=== PATIENT | female | born 1945 | race Caucasian/White ===

== ENCOUNTER 2017-09-06 10:24 | Emergency (ER) | payer MEDICARE, SELFPAY ==
[2017-09-06 10:26] VITALS: BP 159/93; PULSE 75; RESP 17; TEMP 37; O2SAT 97; BMI 33.5
--- NOTE | 2017-09-06 10:52 | NURSING ---
NO LW OR POA
--- NOTE | 2017-09-06 11:29 | RAD_ITS ---
STUDY: X-RAY - LUMBAR SPINE REASON FOR EXAM: Female, 72 years old. Right-sided hip and back pain TECHNIQUE: 3 view(s) of the lumbar spine were obtained. COMPARISON: None FINDINGS: There is straightening of the normal lumbar lordosis. There is a mild levoscoliosis of the lumbar spine. There is a normal alignment of the vertebrae in the lateral plane. There is diffuse demineralization with multi-level endplate spondylosis. There is multi-level degenerative disc disease with multi-level disc space narrowing. There has been previous laminectomy from L1 to L5. The soft tissue structures are unremarkable. RAD/Lumbar Spine 2 or 3 Views IMPRESSION: Degenerative and postsurgical changes of the spine, as detailed above. Electronically Signed: Felix Thomason MD at 12:33 EDT , Service support ,
[2017-09-06] MEDS: Orphenadrine 60 MG/2 ML Ampul IM (11:46)
[2017-09-06] MEDS: Morphine 4 MG/ML Syringe SC (11:53)
--- NOTE | 2017-09-06 13:09 | ED.VISSUMM ---
- ER Visit Summary Date of Service: 09/06/17 Chief Complaint: Pain History of Present Illness: The patient is a 72 F pain that starts in her right buttock and radiates down her right thigh. Symptoms started 2 days ago. She tried Flexeril and hydrocodone. She also takes an anti-inflammatory medication. These are not helping. She denies any injury. Denies any prior history of this. Denies weakness or numbness. Denies bowel or bladder changes. Denies fevers. She does have a history of back surgery remotely for calcium deposits. Physical Examination: Vital signs unremarkable. Alert and oriented. No acute distress. Heart regular. Abdomen soft and nontender. Tenderness in the right lower back. Straight leg raise negative. Strength and sensation normal. Pulses equal. Test Results: X-ray shows degenerative and postoperative changes. Nothing acute. Emergency Department Course and Treatment: Patient was treated with morphine and Norflex. Symptoms improved. Believe the patient is appropriate for outpatient follow-up and further care as needed. She should continue her anti-inflammatory. Will prescribe short course of hydrocodone for breakthrough pain. She may also take Flexeril as needed for muscle spasm. Precautions were discussed. Patient voiced understanding. She will call her doctor tomorrow for follow-up. Treatment Plan: Above Disposition: Discharge Impression: 1. Right sciatica This note was generated with Penemarie K [employer] dictation software. It may contain incorrect words, spelling, and punctuation that were not noted in review of the chart prior to signing ED Disposition - Plan for ED Patient: Chief Complaint: Lower Extremity Injury Referrals: Mariama Diamond MD [Primary Care Provider] -
--- NOTE | 2017-09-06 13:13 | ED.DEP ---
ED Disposition - Plan for ED Patient: Chief Complaint: Lower Extremity Injury Instructions: Relieving Back Pain Prescriptions: Hydrocodone/Acetaminophen [Hydrocodon-Acetaminophen 5-325] 1 ea PO 4X/DAY PRN PRN 3 Days #12 tab PRN Reason: Pain Cyclobenzaprine [Flexeril] 10 mg PO TID PRN #20 tab PRN Reason: Muscle Spasm Referrals: Mariama Diamond MD [Primary Care Provider] -
[2017-09-06 13:27] VITALS: BP 144/76; PULSE 67
== END 2017-09-06 13:27 | disposition home or self-care (01) ==
LOC: ED 11:59
PROVIDERS: Emergency Provider Emergency Medicine; Family Provider Internal Medicine; PCP Internal Medicine
DX: M54.41 Lumbago with sciatica, right side (principal); Z79.899 Other long term (current) drug therapy
CPT/HCPCS: 72100; 96372; 99282

== ENCOUNTER 2019-01-15 11:44 | Emergency (ER) | payer MEDICARE, SELFPAY ==
[2019-01-15 11:46] VITALS: BP 131/74; PULSE 76; RESP 17; TEMP 36.4; O2SAT 93; BMI 35.8
--- NOTE | 2019-01-15 12:13 | RAD_ITS ---
STUDY: X-RAY CHEST REASON FOR EXAM: Female, 73 years old. Syncopal episode TECHNIQUE: Single view of the chest was obtained COMPARISON: None. FINDINGS: No lung consolidation, pleural effusion or pneumothorax. Cardiac size within normal limits. Osseous structures demonstrate no acute abnormalities. Overlying EKG leads somewhat limit assessment. IMPRESSION: No acute cardiopulmonary pathology noted. Electronically Signed: Yovany Anton, at 12:37 EDT Tel , Service support , RAD/Chest 1 View (Portable)
--- NOTE | 2019-01-15 12:14 | EKG12_ITS ---
Test Reason : Blood Pressure : / mmHG Vent. Rate : 070 BPM Atrial Rate : 070 BPM P-R Int : 160 ms QRS Dur : 128 ms QT Int : 458 ms P-R-T Axes : 048 -43 -66 degrees QTc Int : 494 ms Sinus rhythm with occasional Premature ventricular complexes Left axis deviation Left ventricular hypertrophy with QRS widening T wave abnormality, consider inferior ischemia T wave abnormality, consider anterolateral ischemia Abnormal ECG Confirmed by RUBY SABILLON, GATITO ([id number]), clinical editor KATHLEEN MAR ([id number]) on 01/18/2019 10:17:34 AM Referred By: SANIYA Confirmed By:GATITO BELTRAN MD
--- NOTE | 2019-01-15 12:15 | ED.DCSUM_ITS ---
History of Present Illness Chief Complaint: Nausea/Vomiting Detail of Chief Complaint: Syncope Informant: Patient, Family Onset: Today Current Severity: Mild Maximum Severity: Moderate Narrative: Patient presents via EMS after syncopal episode. Patient was outside helping her split wood. She was sitting next to the motor on the log splitter. She states that just after they turn the machine off she started to notice everything in her vision becoming wavy and she felt lightheaded and nauseated. states that when he checked on her head was slumped in her eyes were rolled back in her head. She had not fallen from a seated position that she was sitting in. She came around once EMS had arrived. She denies having chest pain or palpitations. believes that she may have carbon monoxide poisoning from sitting next to the machine. - Past Medical History (1) Hypertension Status: Chronic (2) High cholesterol Status: Chronic Past Medical History - Allergies and Home Meds Allergies/Adverse Reactions: Allergies adhesive Allergy (Verified 01/15/19 11:45) Rash lactose Allergy (Verified 01/15/19 11:45) Upset Stomach Primary Care Physician: Fernando Yun MD [Primary Care Provider] - Prior records reviewed: Yes Past Medical History: - - Reviewed Lives: Spouse/ Significant Other Smoking Status: Never smoker Review of Systems General: Denies: Chills, Fever Eyes: Denies: Visual changes - bilaterally ENT: Denies: Bilateral ear pain Cardiovascular: Denies: Chest pain, Palpitations, Heart racing Respiratory: Denies: Dyspnea, Cough Gastrointestinal: Reports: Nausea, Vomiting. Denies: Abdominal pain Genitourinary: Denies: Dysuria Musculoskeletal: Denies: Myalgias Neurological: Denies: Headache Endocrine: Denies: Polyuria, Polydipsia Hematologic: Denies: Easy bruising Allergy: Denies: Uticaria, Swelling of the mouth Physical Exam Vital Signs/Narrative: Vital Signs Temp Pulse Resp BP Pulse Ox 01/15/19 11:46 97.5 F L 76 17 131/74 H 93 Inital Vital Signs reviewed: Yes General: Well nourished, Well developed Head: Normocephalic ENT: Moist mucous membranes Neck: Supple Cardiovascular: Regular rate, Regular rhythm Respiratory: No distress, CTA bilaterally Abdomen: Soft, Nontender, Normal bowel sounds Back: Nontender Skin: Normal color Neurological: Alert, Oriented x3, Normal Strength, Normal Sensation Psychological: Normal affect Diagnostic/Tx/Re-eval Impressions Chest X-Ray 01/15/19 12:13 01/15/19 12:13 Chest 1 View (Portable) [RAD] Stat Laboratory Results 01/15/19 01/15/19 01/15/19 11:54 11:54 12:31 WBC 7.7 RBC 4.14 L Hgb 13.3 Hct 38.6 MCV 93.2 MCH 32.1 H MCHC 34.5 RDW Std Deviation 44.0 H RDW Coeff of Linda 12.8 Plt Count 229 MPV 10.2 Immature Gran % (Auto) 0.300 Neut % (Auto) 56.7 Lymph % (Auto) 30.4 Lamar % (Auto) 7.8 Eos % (Auto) 3.9 Baso % (Auto) 0.9 Absolute Neuts (auto) 4.4 Absolute Lymphs (auto) 2.35 Nucleated RBC % 0 VBG Carboxyhemoglobin 1.3 Sodium 140 Potassium 3.4 L Chloride 100 Carbon Dioxide 29.0 Anion Gap 11 BUN 23 H Creatinine 0.82 Estim Creat Clear Calc 52.76 Est GFR (MDRD) Af Amer 88 Est GFR (MDRD) Non-Af 73 BUN/Creatinine Ratio 28.0 H Glucose 203 H Calcium 9.2 Total Bilirubin 0.40 Direct Bilirubin 0.13 AST 16 ALT 26 Alkaline Phosphatase 90 Troponin I < 0.015 Total Protein 7.3 Albumin 3.7 Globulin 3.6 Urine Color Urine Clarity Urine pH Ur Specific [place] Urine Protein Urine Glucose (UA) Urine Ketones Urine Occult Blood Urine Nitrite Urine Bilirubin Urine Urobilinogen Ur Leukocyte Esterase Urine RBC Urine WBC Ur Squamous Epith Cells Ur Renal Epithelial Cell Urine Bacteria Urine Mucus 01/15/19 13:45 WBC RBC Hgb Hct MCV MCH MCHC RDW Std Deviation RDW Coeff of Linda Plt Count MPV Immature Gran % (Auto) Neut % (Auto) Lymph % (Auto) Lam[place] % (Auto) Eos % (Auto) Baso % (Auto) Absolute Neuts (auto) Absolute Lymphs (auto) Nucleated RBC % VBG Carboxyhemoglobin Sodium Potassium Chloride Carbon Dioxide Anion Gap BUN Creatinine Estim Creat Clear Calc Est GFR (MDRD) Af Amer Est GFR (MDRD) Non-Af BUN/Creatinine Ratio Glucose Calcium Total Bilirubin Direct Bilirubin AST ALT Alkaline Phosphatase Troponin I Total Protein Albumin Globulin Urine Color Yellow Urine Clarity Sl. Cloudy Urine pH 6.0 Ur Specific [place] 1.015 Urine Protein Negative Urine Glucose (UA) Normal Urine Ketones Negative Urine Occult Blood Negative Urine Nitrite Negative Urine Bilirubin Negative Urine Urobilinogen Normal Ur Leukocyte Esterase 500 H Urine RBC 0 SEEN Urine WBC 0-5 SEEN Ur Squamous Epith Cells 5-10 SEEN Ur Renal Epithelial Cell 0-5 SEEN Urine Bacteria 1+ Urine Mucus RARE - EKG Initial EKG Interpretation: Sinus Rhythm - 70. Inferior and lateral T inversions are noted, changed when compared to prior study from 2007. - Medical Decision Making Patient presents with a syncopal episode while working outside. Test results are discussed with patient and at bedside. This time she feels completely back to her baseline and is requesting discharge to home. I advised her that her test results do not indicate a significant cause for her syncope. We discussed possibility of cardiac monitoring in the hospital but she wishes to go home. She will return for worsening symptoms or concerns. ED Disposition - Plan for ED Patient: Disposition: Home or Assisted Living Diagnosis: Syncope Instructions: SYNCOPE, Unk Cause Referrals: Fernando Yun MD [Primary Care Provider] - As soon as possible
[2019-01-15] MEDS: 0.9% Normal Saline 1,000 ML 150 ML IV (12:30)
[2019-01-15 12:31] LABS: Absolute Lymphocyte Count 2.35 X10^3/uL (0.83-4.51); Absolute Neutrophil Count 4.4 X10^3/uL (2.0-7.7); Basophil# 0.07 X10^3/uL; Basophil% 0.9 % (0-1); Eosinophils% 3.9 % (0-5); Hematocrit 38.6 % (37-47); Hemoglobin 13.3 g/dL (12.0-15.0); Lymphocyte # 2.35 X10^3/ul (4.0); Lymphocyte % 30.4 % (19-41); Mean Corp Hgb Conc 34.5 g/dL (32-36); Mean Corpuscular Hgb 32.1 pg (27.0-32.0); Mean Corpuscular Volume 93.2 fL (81-99); Mean Platelet Vol. 10.2 fl (6.2-12.0); Monocyte% 7.8 % (0-10); NRBC Flagged by Analyzer 0 % (0-5); Neutrophil # 4.38 X10^3/uL (2.7-7.7); Neutrophil % 56.7 % (47-70); Platelet Count 229 K/mm3 (150-450); RBC Distribution Width CV 12.8 % (11.6-14.6); Red Blood Count 4.14 M/mm3 (4.2-5.4); White Blood Count 7.7 K/mm3 (4.4-11.0)
[2019-01-15 12:40] LABS: Carboxyhemoglobin Frac (CO) 1.3 % (0.0-1.5)
[2019-01-15 12:44] LABS: AST(SGOT) 16 U/L (15-37); Alanine Aminotransfer ALT/SGPT 26 U/L (13-56); Albumin, Serum 3.7 g/dL (3.2-5.0); Alkaline Phosphatase 90 U/L (45-117); Anion Gap 11 (5-15); BUN 23 mg/dL (7-18); Bilirubin, Direct 0.13 mg/dL (0.00-0.30); Calcium,Total 9.2 mg/dL (8.5-10.1); Chloride 100 mmol/L (98-107); Creatinine, Serum 0.82 mg/dL (0.55-1.02); EST Glomerular Filtration Rate 73 mL/min (>60); Est Glom Filt Rate - Afr Amer 88 mL/min (>60); Estimated Creatinine Clearance 52.76 ml/min; Globulin 3.6 g/dL (2.2-4.2); Glucose 203 mg/dL (74-106); Potassium 3.4 mmol/L (3.5-5.1); Protein, Total 7.3 g/dL (6.4-8.2); Sodium Level 140 mmol/L (136-145)
[2019-01-15 13:54] LABS: Red Blood Cells-Urine 0 SEEN /hpf (0-5)
[2019-01-15 13:56] LABS: Color, Urine Yellow (Yellow); Glucose, Dipstick Normal (Normal); Ketone-Dipstick Negative (Negative); Leukocyte Esterase-Dipstick 500 /ul (Negative); Nitrite-Dipstick Negative (Negative); Occult Blood-Urine Negative /ul (Negative); Protein-Dipstick Negative (Negative); Specific Gravity, Urine 1.015 (1.002-1.030); Urine Bilirubin Dipstick Negative (Negative); Urine Clarity Sl. Cloudy (Clear); Urine Urobilinogen Normal (Normal)
[2019-01-15 14:04] LABS: Bacteria 1+ /hpf (None Seen); Mucous, Urine RARE /hpf (<or=2+); Squamous Epithelial Cells - UA 5-10 SEEN /hpf (5-10); White Blood Cells 0-5 SEEN /hpf (0-5)
[2019-01-15 14:05] LABS: Renal Epithelial Cells 0-5 SEEN /hpf (0-5)
[2019-01-15 14:12] VITALS: BP 122/69; PULSE 73; RESP 19; O2SAT 94
== END 2019-01-15 14:28 | disposition home or self-care (01) ==
PROVIDERS: Emergency Provider Emergency Medicine; Family Provider Family Medicine; PCP Family Medicine
DX: R55 Syncope and collapse (principal); I10 Essential (primary) hypertension; E78.00 Pure hypercholesterolemia, unspecified; Z79.84 Long term (current) use of oral hypoglycemic drugs; Z79.899 Other long term (current) drug therapy
CPT/HCPCS: 71045; 80048; 80076; 81001; 82375; 84484; 85025; 93005; 96360; 96361; 99285

== ENCOUNTER → 2019-12-19 10:38 | Outpatient (CLI) | payer MEDICARE, SELFPAY ==
[2019-12-19 11:16] LABS: CREATININE FINGERSTICK 0.6 mg/dL (0.55-1.02); EGFR FINGERSTICK > 60.0000 mL/min (>60)
--- NOTE | 2019-12-19 11:30 | MRI_ITS ---
STUDY: MRI BRAIN WITH AND WITHOUT CONTRAST (ATTENTION INTERNAL AUDITORY CANALS - I.A.C.''s) REASON FOR EXAM: Female, 74 years old. LEFT hearing loss, bilat tinnitus TECHNIQUE: Standardized multiplanar fat and water weighted pulse sequences were obtained. IV Dotarem 18ml was administered for the contrast portion of the examination. COMPARISON: None. FINDINGS: Normal bilateral temporal bones. Normal bilateral internal auditory canals. There is no demonstrated intracanalicular or cisternal vestibular schwannoma (acoustic neuroma). There is no enhancement of the bilateral VIIth or VIIIth cranial nerves. Normal bilateral cochlea, vestibules and semicircular canals. Normal size of the ventricles and extra-axial spaces for the patient''s age. Normal white matter tracts of the supratentorial brain. Normal bilateral basal ganglia. Normal thalami. Normal flow voids within the major intracranial circulation suggesting patency by spin echo criteria. Normal venous enhancement. There is no enhancing intra-axial or extra-axial abnormality. There is no extra-axial fluid accumulation. Normal sella turcica, pituitary gland, infundibular stalk, optic chiasm and hypothalamus. Normal tectal plate and pineal gland. Normal midbrain, cedric and medulla. Normal cerebellum. MRI/Brain W/WO Contrast IMPRESSION: Normal unenhanced and enhanced MRI of the bilateral internal auditory canals (I.A.C''s). Electronically Signed: Alfredito Bill MD at 12:34 EDT Tel , Service support ,
== END ==
PROVIDERS: PCP Family Medicine; Referring Provider Otolaryngology Otolaryngology/Facial Plastic Surgery; Visit Provider Otolaryngology Otolaryngology/Facial Plastic Surgery
DX: H91.92 Unspecified hearing loss, left ear (principal); R27.0 Ataxia, unspecified
CPT/HCPCS: 70553; A9575

== ENCOUNTER 2020-09-06 08:01 | Day surgery (SDC) | payer MEDICARE, SELFPAY ==
--- NOTE | 2020-08-29 13:16 | EKG12_ITS ---
Test Reason : PREOP Blood Pressure : / mmHG Vent. Rate : 081 BPM Atrial Rate : 081 BPM P-R Int : 152 ms QRS Dur : 118 ms QT Int : 380 ms P-R-T Axes : 048 -43 041 degrees QTc Int : 441 ms Sinus rhythm with Premature supraventricular complexes Left axis deviation Left ventricular hypertrophy with QRS widening Abnormal ECG Confirmed by FELIX SABILLON, ARNOLD ([id number]), photography editor KATHLEEN MAR ([id number]) on 08/30/2020 9:21:02 AM Referred By: MACK Confirmed By:ARNOLD WASHINGTON MD
[2020-09-06] VITALS (7 sets, daily range): BP systolic 93–152; BP diastolic 63–80; PULSE 68–75; RESP 14–16; TEMP 36.1–36.6; O2SAT 93–94; BMI 33.7
[2020-09-06] MEDS: Lactated Ringers 1,000 ML 100 ML IV (08:52)
[2020-09-06 09:00] LABS: Bedside Glucose 178 mg/dL (70-110)
[2020-09-06] MEDS: Lidocaine 1% /Epi 1:100 (20ml) 20 ML Vial (09:20)
--- NOTE | 2020-09-06 09:50 | PCM.OPRPT ---
Problem List (1) Sensorineural hearing loss (SNHL) of right ear with restricted hearing of left ear Status: Chronic Report of Operation Date of Procedure: 09/06/20 Pre-Operative Diagnosis: Left single sided deafness Post-Operative Diagnosis: Same Surgery/Procedure Performed:: Placement of bone anchored hearing device left ear Description of Surgical Findings:: Corinna is a 75-year-old female with left single-sided deafness. She was counseled regarding rehabilitation with a bone-anchored hearing device and was eager to proceed. The risks, alternatives, potential complications, and benefits were discussed at length and any questions answered to the patient and/or caregiver's satisfaction. Witnessed informed consent was obtained in the office, and the patient and/or caregiver was agreeable to proceed. Procedure went as follows: The patient was identified in the preoperative holding after site marking the appropriate ear in accordance with the patient's history, office chart, and physical exam. The patient was then brought to the operating room and placed under general anesthesia and intubated. When appropriate anesthesia was obtained, the scalp was prepped and draped in usual sterile fashion. The abutment site was then marked 5 cm posterior to the external auditory meatus and injected with 1 mL of 1% lidocaine with 100,000 epinephrine. Using a 5 mm punch, the skin and subcutaneous tissues were incised and resected. The periosteum overlying the operative site was then removed sharply with an iris scissor. The pilot plant supervisor drill hole was then created and palpated to ensure bone at the bottom depth of the hole and then finalized to 4 mm in size to allow for placement of the titanium abutment. The bony fragments were then suctioned and irrigated clear and the 4 x 12 mm abutment was then placed in accordance with the manufacture's directions. Xeroform gauze was then placed at the skin edge followed by the healing cap. The patient was then returned to anesthesia, was revived and extubated without complication having tolerated the procedure well. Type of Anesthesia:: Local MAC Anesthesiologist: Jose Leos Special Medications: none Specimen's removed: none Drains: none Estimated Blood Loss (mL): 0 mL Fluids Replaced: 300 mL Grafts/Implants Used: 12 mm PONTO abutment - Complications none - Admit VTE Documentation VTE Present on Admission: No VTE Mechan Device Prophylaxis: None VTE Pharm Prophylaxis ordered?: No Reason prophylaxis not ordered:: Procedure Not Indicated
--- NOTE | 2020-09-06 09:54 | DCINST_ITS ---
- Discharge Diagnoses Current Active Problems: Current Active and Chronic Problems Sensorineural hearing loss (SNHL) of right ear with restricted hearing of left ear (Chronic) You will use the following diet at home:: No restrictions Discharge Activity: Return to Normal Activity Call your doctor if your incision/area has: Increased Pain/ Swelling, Foul Smelling Discharge Call your doctor if you observe: Fever of 101 or Higher, Uncontrolled pain Cleanse incision/area with: Do not get Incision Wet Allergies/Adverse Reactions: Allergies adhesive Allergy (Verified 09/06/20 08:32) Rash lactose Allergy (Verified 09/06/20 08:32) Upset Stomach Medications to take at Discharge Acetaminophen [Tylenol Extra Strength] 500 mg PO Q6H PRN PRN 09/06/17 Benazepril/Hydrochlorothiazide [Benazepril-Hctz 20-12.5 mg Tab] 1 tab PO BID 09/06/17 Diclofenac [Voltaren] 75 mg PO BIDCM 09/06/17 Gabapentin [Neurontin] 600 mg PO BID 09/06/17 Gabapentin [Neurontin] 900 mg PO BID 09/06/17 Levothyroxine [Synthroid] 150 mcg PO DAILY 09/06/17 Metformin HCl [Glucophage] 1,500 mg PO QHS 09/06/17 Atorvastatin Calcium [Lipitor] 20 mg PO QHS 01/15/19 Primary Care Physician: Fernando Yun MD [Primary Care Provider] - Test Results: Test results from this visit will be discussed in further detail at your follow- up appointment, if applicable. Please Follow Up With: Kannan Rahman MD When: 2 weeks
== END 2020-09-06 10:47 | disposition home or self-care (01) ==
LOC: SDC 08:05 → AC 08:05
PROVIDERS: PCP Family Medicine; Referring Provider Otolaryngology; Visit Provider Otolaryngology
PROC: (CPT 69710; principal; 2020-09-06 09:25)
DX: H90.A21 Sensorineural hearing loss, unilateral, right ear, with restricted hearing on the contralateral side (principal); E11.9 Type 2 diabetes mellitus without complications; E78.00 Pure hypercholesterolemia, unspecified; I10 Essential (primary) hypertension; M19.90 Unspecified osteoarthritis, unspecified site; Z79.84 Long term (current) use of oral hypoglycemic drugs; Z79.899 Other long term (current) drug therapy; Z20.828 Contact with and (suspected) exposure to other viral communicable diseases
CPT/HCPCS: 69714; 82962; 87426; 93005; C9803; J7120; J2405

== ENCOUNTER → 2021-03-11 07:12 | Outpatient (CLI) | payer MEDICARE, SELFPAY ==
--- NOTE | 2021-03-11 07:12 | MRI_ITS ---
STUDY: MRI LUMBAR SPINE WITH AND WITHOUT CONTRAST REASON FOR EXAM: Female, 75 years old. pain TECHNIQUE: Standardized fat and water weighted pulse sequences were obtained in the sagittal and axial planes. IV 18ml Dotarem was administered for the contrast portion of the examination. COMPARISON: X-ray 03/05/2021 FINDINGS: T12-L1: Normal endplates. Normal disc height, hydration and morphology. Normal bilateral facet joints. Normal central canal and bilateral lateral recesses. Normal bilateral intervertebral neural foramina. There is straightening of the normal lumbar lordosis. Mild levoscoliosis centered at L3. Normal conus medullaris that terminates at the L1. L1-2: Status post posterior decompression. Mild bilobed disc protrusion produces mild spinal stenosis and mild bilateral neural foraminal stenosis. L2-3: Status post posterior decompression. 5 mm of anterolisthesis of L2 on L3 with a moderate broad disc protrusion produces severe spinal stenosis and moderate bilateral neural foraminal stenosis. L3-4: Status post posterior decompression. Moderate bilobed disc protrusion produces moderate spinal stenosis, moderate right neural foraminal stenosis and mild left neural foraminal stenosis. L4-5: Status post posterior decompression. Moderate broad disc protrusion produces moderate spinal stenosis and moderate bilateral neural foraminal stenosis. L5-S1: Status post posterior decompression. 5 mm retrolisthesis of L5 on S1 with a mild broad disc protrusion produces moderate spinal stenosis with moderate bilateral recess stenosis with abutment of the S1 nerve roots bilaterally, moderate right neural foraminal stenosis and severe left neural foraminal stenosis with effacement of the left L5 nerve root laterally. Normal visualized sacral ala. Normal visualized paraspinous soft tissue structures. Some dural enhancement at the level of L3. MRI/Spine Lumbar W/WO Contrast IMPRESSION: Postsurgical changes, levoscoliosis, degenerative disc disease as described above. Electronically Signed: Maximino Chan MD at 10:46 EDT Tel , Service support ,
[2021-03-11 07:46] LABS: CREATININE FINGERSTICK 0.7 mg/dL (0.55-1.02); EGFR FINGERSTICK > 60.0000 mL/min (>60)
== END ==
PROVIDERS: PCP Family Medicine; Referring Provider Orthopaedic Surgery; Visit Provider Orthopaedic Surgery
DX: M48.061 Spinal stenosis, lumbar region without neurogenic claudication (principal)
CPT/HCPCS: 72158; A9575

== ENCOUNTER 2021-10-01 12:30 | Outpatient (CLI) | payer MEDICARE, SELFPAY ==
[2021-10-01 15:13] LABS: Absolute Lymphocyte Count 2.17 X10^3/uL (0.83-4.51); Absolute Neutrophil Count 6.6 X10^3/uL (2.0-7.7); Basophil# 0.08 X10^3/uL; Basophil% 0.8 % (0-1); Eosinophil# 0.29 X10^3/uL; Eosinophils% 2.9 % (0-5); Hematocrit 37.5 % (37-47); Hemoglobin 12.4 g/dL (12.0-15.0); Lymphocyte # 2.17 X10^3/ul (0.83-4.51); Mean Corp Hgb Conc 33.1 g/dL (32-36); Mean Corpuscular Hgb 30.3 pg (27.0-32.0); Mean Corpuscular Volume 91.7 fL (81-99); Mean Platelet Vol. 10.6 fl (6.2-12.0); Monocyte# 0.65 X10^3/uL; Monocyte% 6.6 % (0-10); NRBC Flagged by Analyzer 0 % (0-5); Neutrophil # 6.64 X10^3/uL (2.7-7.7); Neutrophil % 67.3 % (47-70); Platelet Count 287 K/mm3 (150-450); RBC Distribution Width CV 12.9 % (11.6-14.6); RBC Distribution Width SD 42.7 fl (35.1-43.9); Red Blood Count 4.09 M/mm3 (4.2-5.4); White Blood Count 9.9 K/mm3 (4.4-11.0)
[2021-10-01 15:38] LABS: Vitamin D,25 Hydroxy 18.3 ng/mL
[2021-10-01 15:43] LABS: AST(SGOT) 19 U/L (15-37); Alanine Aminotransfer ALT/SGPT 28 U/L (13-56); Albumin, Serum 3.7 g/dL (3.2-5.0); Alkaline Phosphatase 79 U/L (45-117); Anion Gap 8 (5-15); BUN 17 mg/dL (7-18); Chloride 93 mmol/L (98-107); Cholesterol 128 mg/dL (200); Creatinine, Serum 0.71 mg/dL (0.55-1.02); EST Glomerular Filtration Rate 85 mL/min (>60); Est Glom Filt Rate - Afr Amer 103 mL/min (>60); Free T3 1.1 pg/mL (2.18-3.98); Globulin 3.7 g/dL (2.2-4.2); Glucose 120 mg/dL (74-106); High Density Lipoprotein 44 mg/dL; Potassium 3.8 mmol/L (3.5-5.1); Protein, Total 7.4 g/dL (6.4-8.2); Sodium Level 133 mmol/L (136-145); T4 Free Direct 1.55 ng/dL (0.76-1.46); Triglycerides 172 mg/dL; Very Low Density Lipoprotein 34 mg/dL (5-40)
[2021-10-01 15:45] LABS: Hemoglobin A1c 6.8 % (3.8-5.6)
== END 2021-10-01 23:59 | disposition home or self-care (01) ==
PROVIDERS: PCP Internal Medicine; Referring Provider Internal Medicine; Visit Provider Internal Medicine
DX: I10 Essential (primary) hypertension (principal); E11.69 Type 2 diabetes mellitus with other specified complication; R19.7 Diarrhea, unspecified; E78.00 Pure hypercholesterolemia, unspecified; E66.9 Obesity, unspecified; E03.9 Hypothyroidism, unspecified; M48.061 Spinal stenosis, lumbar region without neurogenic claudication; M54.16 Radiculopathy, lumbar region; E55.9 Vitamin D deficiency, unspecified
CPT/HCPCS: 36415; 80053; 80061; 82306; 83036; 84439; 84443; 84481; 85025

== ENCOUNTER 2021-10-02 10:15 | Outpatient (CLI) | payer MEDICARE, SELFPAY ==
[2021-10-03 21:27] LABS: Fats, Neutral Normal (.); Fats, Total Normal (.)
== END 2021-10-02 23:59 | disposition home or self-care (01) ==
LOC: LABSPEC 10:15
PROVIDERS: PCP Internal Medicine; Referring Provider Internal Medicine; Visit Provider Internal Medicine
DX: I10 Essential (primary) hypertension (principal); E11.69 Type 2 diabetes mellitus with other specified complication; R19.7 Diarrhea, unspecified; E78.00 Pure hypercholesterolemia, unspecified; E66.9 Obesity, unspecified; E03.9 Hypothyroidism, unspecified; M48.061 Spinal stenosis, lumbar region without neurogenic claudication; M54.16 Radiculopathy, lumbar region
CPT/HCPCS: 82705; 83630; 87506

== ENCOUNTER → 2021-10-09 | Outpatient (CLI) | payer MEDICARE, SELFPAY | END | disposition home or self-care (01) | LOC: LABSPEC 10:47 | PROVIDERS: PCP Internal Medicine; Referring Provider Internal Medicine; Visit Provider Internal Medicine | DX: R19.7 Diarrhea, unspecified (principal) | CPT/HCPCS: 87493 ==

== ENCOUNTER → 2022-06-19 | Outpatient (CLI) | payer MEDICARE, SELFPAY ==
[2022-06-19 09:50] LABS: Absolute Lymphocyte Count 3.58 X10^3/uL (0.83-4.51); Absolute Neutrophil Count 6.1 X10^3/uL (2.0-7.7); Basophil% 0.9 % (0-1); Eosinophil# 0.67 X10^3/uL; Hemoglobin 13.2 g/dL (12.0-15.0); Lymphocyte # 3.58 X10^3/ul (0.83-4.51); Lymphocyte % 32.1 % (19-41); Mean Corp Hgb Conc 33.8 g/dL (32-36); Mean Corpuscular Volume 91.5 fL (81-99); Mean Platelet Vol. 9.6 fl (6.2-12.0); Monocyte# 0.68 X10^3/uL; Monocyte% 6.1 % (0-10); NRBC Flagged by Analyzer 0 % (0-5); Neutrophil # 6.09 X10^3/uL (2.7-7.7); Neutrophil % 54.5 % (47-70); Platelet Count 281 K/mm3 (150-450); RBC Distribution Width CV 13.1 % (11.6-14.6); RBC Distribution Width SD 43.8 fl (35.1-43.9); Red Blood Count 4.26 M/mm3 (4.2-5.4); White Blood Count 11.2 K/mm3 (4.4-11.0)
[2022-06-19 10:12] LABS: AST(SGOT) 17 U/L (15-37); Alanine Aminotransfer ALT/SGPT 26 U/L (13-56); Albumin, Serum 3.9 g/dL (3.2-5.0); Alkaline Phosphatase 94 U/L (45-117); Anion Gap 8 (5-15); BUN 23 mg/dL (7-18); BUN/Creat Ratio 30.5 RATIO (10-20); Calcium,Total 9.7 mg/dL (8.5-10.1); Chloride 97 mmol/L (98-107); Creatinine, Serum 0.76 mg/dL (0.55-1.02); EST Glomerular Filtration Rate 79 mL/min (>60); Est Glom Filt Rate - Afr Amer 96 mL/min (>60); Free T3 1.1 pg/mL (2.18-3.98); Globulin 3.8 g/dL (2.2-4.2); Glucose 171 mg/dL (74-106); Potassium 3.8 mmol/L (3.5-5.1); Protein, Total 7.7 g/dL (6.4-8.2); Sodium Level 135 mmol/L (136-145); T4 Free Direct 1.71 ng/dL (0.76-1.46); Thyroid Stim Hormone (TSH) 1.26 uIU/mL (0.358-3.74)
[2022-06-19 10:18] LABS: Hemoglobin A1c 6.9 % (3.8-5.6)
== END | disposition home or self-care (01) ==
LOC: LAB 09:28
PROVIDERS: PCP Internal Medicine; Referring Provider Internal Medicine; Visit Provider Internal Medicine
DX: I10 Essential (primary) hypertension (principal); E11.69 Type 2 diabetes mellitus with other specified complication; E03.9 Hypothyroidism, unspecified; E66.9 Obesity, unspecified; E78.00 Pure hypercholesterolemia, unspecified
CPT/HCPCS: 36415; 80053; 83036; 84439; 84443; 84481; 85025

== ENCOUNTER → 2022-12-18 | Outpatient (CLI) | payer MEDICARE, SELFPAY ==
[2022-12-18 08:30] LABS: Bacteria 0 SEEN /hpf (None Seen); Mucous, Urine 0 SEEN /hpf (<or=2+); Red Blood Cells-Urine 0 SEEN /hpf (0-5)
[2022-12-18 08:52] LABS: Color, Urine Yellow (Yellow); Glucose, Dipstick Normal (Normal); Ketone-Dipstick Negative (Negative); Leukocyte Esterase-Dipstick 100 /ul (Negative); Nitrite-Dipstick Negative (Negative); Occult Blood-Urine Negative /ul (Negative); Protein-Dipstick 15 mg/dl (Negative); Urine Bilirubin Dipstick Negative (Negative); Urine Clarity Sl. Cloudy (Clear); Urine Urobilinogen Normal (Normal)
[2022-12-18 08:53] LABS: Absolute Lymphocyte Count 4.13 X10^3/uL (0.83-4.51); Basophil# 0.09 X10^3/uL; Basophil% 0.8 % (0-1); Hematocrit 38.7 % (37-47); Hemoglobin 12.6 g/dL (12.0-15.0); Lymphocyte # 4.13 X10^3/ul (0.83-4.51); Lymphocyte % 37.3 % (19-41); Mean Corp Hgb Conc 32.6 g/dL (32-36); Mean Corpuscular Hgb 30.5 pg (27.0-32.0); Mean Corpuscular Volume 93.7 fL (81-99); Mean Platelet Vol. 9.9 fl (6.2-12.0); Monocyte% 7.2 % (0-10); NRBC Flagged by Analyzer 0 % (0-5); Neutrophil # 5.02 X10^3/uL (2.7-7.7); Neutrophil % 45.3 % (47-70); Platelet Count 296 K/mm3 (150-450); RBC Distribution Width CV 13.1 % (11.6-14.6); RBC Distribution Width SD 44.7 fl (35.1-43.9); Red Blood Count 4.13 M/mm3 (4.2-5.4); White Blood Count 11.1 K/mm3 (4.4-11.0)
[2022-12-18 08:59] LABS: Squamous Epithelial Cells - UA 5-10 SEEN /hpf (5-10); White Blood Cells 10-25 SEEN /hpf (0-5)
[2022-12-18 09:05] LABS: Protein, Urine (Random) 8.4 mg/dL (<11.9); Protein:Creat Ratio 202 mg/g CRE (0-200)
[2022-12-18 09:28] LABS: AST(SGOT) 18 U/L (15-37); Alanine Aminotransfer ALT/SGPT 22 U/L (13-56); Albumin, Serum 3.7 g/dL (3.2-5.0); Alkaline Phosphatase 113 U/L (45-117); Anion Gap 10 (5-15); BUN 21 mg/dL (7-18); BUN/Creat Ratio 24.5 RATIO (10-20); Calcium,Total 9.5 mg/dL (8.5-10.1); Chloride 97 mmol/L (98-107); Cholesterol 127 mg/dL (200); Creatinine, Serum 0.86 mg/dL (0.55-1.02); EST Glomerular Filtration Rate 68 mL/min (>60); Est Glom Filt Rate - Afr Amer 82 mL/min (>60); Free T3 1.1 pg/mL (2.18-3.98); Globulin 3.8 g/dL (2.2-4.2); Glucose 142 mg/dL (74-106); High Density Lipoprotein 44 mg/dL; Magnesium 1.6 mg/dL (1.6-2.6); Protein, Total 7.5 g/dL (6.4-8.2); Sodium Level 134 mmol/L (136-145); T4 Free Direct 1.61 ng/dL (0.76-1.46); Thyroid Stim Hormone (TSH) 0.84 uIU/mL (0.358-3.74); Triglycerides 186 mg/dL; Very Low Density Lipoprotein 37 mg/dL (5-40)
[2022-12-18 09:43] LABS: Vitamin D,25 Hydroxy 58.7 ng/mL
[2022-12-18 10:22] LABS: Hemoglobin A1c 6.8 % (3.8-5.6)
== END | disposition home or self-care (01) ==
LOC: LAB 08:27
PROVIDERS: PCP Internal Medicine; Referring Provider Internal Medicine; Visit Provider Internal Medicine
DX: Z13.220 Encounter for screening for lipoid disorders (principal); E11.69 Type 2 diabetes mellitus with other specified complication; I10 Essential (primary) hypertension; E03.9 Hypothyroidism, unspecified; E66.9 Obesity, unspecified; E78.00 Pure hypercholesterolemia, unspecified; E55.9 Vitamin D deficiency, unspecified
CPT/HCPCS: 36415; 80053; 80061; 81001; 82306; 82570; 83036; 83735; 84156; 84439; 84443; 84481; 85025

== ENCOUNTER → 2023-06-23 | Outpatient (CLI) | payer MEDICARE, SELFPAY ==
--- OUTSIDE RECORDS SUMMARY | 2023-06-23 09:24 | XMS RPT_ITS | CCD ---
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 Name Role Phone Court SABILLON, Fernando Mohamud Primary Care Provider [phone] Dolly Case MD Primary Care Provider Unava ilable TAQUERIA LEAVITT Attending Unavailable DOLLY CASE Primary Care Unavailable TAQUERIA LEAVITT Attending Unavailable DOLLY CASE Primary Care Unavailable TAQUERIA LEAVITT Attending Unavailable DOLLY CASE Primary Care Unavailable TAQUERIA LEAVITT Attending Unavailable DOLLY CASE Primary Care Unavailable VIRGIE RAHMAN Attending Unavailable DOLLY CASE Primary Care Unavailable DOLLY CASE Primary Care Unavailable TAQUERIA LEAVITT Attending Unavailable TAQUERIA LEAVITT Attending Unavailable DOLLY CASE Primary Care Unavailable VIRGIE RAHMAN Attending Unavailable DOLLY CASE Primary Care Unavailable VIRGIE RAHMAN Attending Unavailable DOLLY CASE Primary Care Unavailable TAQUERIA LEAVITT Attending Unavailable DOLLY CASE Primary Care Unavailable Allergies Allergy Classification Reported Allergen(s) Allergy Type Date of Onset Reaction(s) Facility (3 sources) Lactase Drug Allergy 4 Diarrhea [facility] (3 sources) Adhesives [Other] Propensity to adverse reactions 3 [facility] (8 sources) Adhesive agent; Translations: [ADHESIVE] Propensity to adverse reactions to drug 3 Itching [facility] (8 sources) Lactose; Translations: [LACTOSE] Drug Allergy 1 GI Intolerance [facility] Medications Current Medications Medication Drug Class(es) Dates Sig (Normalized) Sig (Original) atorvastatin 20 mg oral tablet (10 sources) HMG-CoA Reductase Inhibitor Start: 09-16-2022 atorvastatin (LIPITOR) 20 MG tablet Completed/Discontinued Medications Medication Drug Class(es) Dates Sig (Normalized) Sig (Original) acetaminophen 500 mg oral tablet (3 sources) Start: 02-22-2014 take 1 tablet by mouth every six hours as needed acetaminophen (TYLENOL EXTRA STRENGTH) 500 mg tablet Take 1 tablet by mouth every 6 hours as needed for Pain. 0 02/22/2014 Active Problems Active Problems Problem Classification Problem Date Documented Date Episodic/Chronic Diabetes mellitus without complication (4 sources) Type 2 diabetes mellitus without complication; Translations: [Type 2 diabetes mellitus without complications] Onset: 09-13-2015 09-13-2015 Chronic Disorders of lipid metabolism (4 sources) Mixed hyperlipidemia; Translations: [Mixed hyperlipidemia] Onset: 12-08-2011 04-12-2018 Chronic Essential hypertension (3 sources) Essential hypertension; Translations: [Essential (primary) hypertension] 09-13-2015 Chronic Other ear and sense organ disorders (3 sources) Sensorineural hearing loss, unilateral, left ear, with unrestricted hearing on the contralateral side; Translations: [Sensorineural hearing loss, unilateral] Onset: 11-06-2020 11-06-2020 Chronic Other ear and sense organ disorders (7 sources) Sensorineural hearing loss, bilateral; Translations: [Sensorineural hearing loss, bilateral] Onset: 12-02-2022 12-04-2022 Chronic Other ear and sense organ disorders (2 sources) Bilateral hearing loss; Translations: [Sensorineural hearing loss, unilateral, left ear, with restricted hearing on the contralateral side] Onset: 11-24-2022 02-23-2023 Chronic Other ear and sense organ disorders (1 source) Sensorineural hearing loss, bilateral; Translations: [Sensorineural hearing loss, bilateral] Onset: 12-02-2022 Chronic Other ear and sense organ disorders (1 source) Sensorineural hearing loss, unilateral, left ear, with restricted hearing on the contralateral side; Translations: [Sensorineural hearing loss, unilateral, left ear, with restricted hearing on the contralateral side] Onset: 11-24-2022 Chronic Other nutritional; endocrine; and metabolic disorders (3 sources) Body mass index 30+ - obesity; Translations: [Body mass index (BMI) 33.0-33.9, adult] Onset: 09-13-2015 09-13-2015 Chronic Spondylosis; intervertebral disc disorders; other back problems (3 sources) Degeneration of lumbar intervertebral disc; Translations: [Other intervertebral disc degeneration, lumbar region] Onset: 03-25-2012 03-25-2012 Chronic Thyroid disorders (4 sources) Hypothyroidism; Translations: [Hypothyroidism, unspecified] 09-13-2015 Chronic Past or Other Problems Problem Classification Problem Date Documented Da te Episodic/Chronic Spondylosis; intervertebral disc disorders; other back problems (6 sources) Lumbar radiculopathy; Translations: [Radiculopathy, lumbar region] Onset: 03-25-2012 03-25-2012 Episodic Results Test Name Value Interpretation Reference Range Facil ity Vital Signs Date Time Vital Sign Value Performing Clinician Faci lity 02-23-2023 13:07-0400 Body height 163.2 cm Virgie Rahman MD Work Phone: [facility] 02-23-2023 13:07-0400 Body mass index (BMI) [Ratio] 31.37 kg/m2 Virgie Rahman MD Work Phone: [facility] 02-23-2023 13:07-0400 Body temperature 97.9 [degF] Virgie Rahman MD Work Phone: [facility] 02-23-2023 13:07-0400 Body weight 83.55 kg Virgie Rahman MD Work Phone: [facility] Encounters Encounter Date Encounter Type Care Provider Facility Start: 04-28-2023 End: 04-28-2023 Clinical Support Taqueria Milan Work Phone: [facility] Procedures Date Procedure Procedure Detail Performing Clinician Start: 04-12-2018 Adult depression scr eening assessment Aurelia Ryder Plan of Treatment Date Care Activity Detail Author Start: 08-23-2023 End: 08-23-2023 Patient encounter procedure [facility] Start: 04-28-2023 End: 04-28-2023 Clinical Support 04/28/2023 10:00 AM EST Clinical Support [facility] [address] [place] [address] Taqueria Leavitt, Kayli [address] [place], [place] [id number] [facility] Start: 03-24-2023 End: 03-24-2023 Clinical Support 03/24/2023 10:00 AM EDT Clinical Support [facility] [address] [place] [id number] Taqueria Leavitt, Kayli [address] [place] [address] [facility] Start: 02-23-2023 End: 02-23-2023 Patient encounter procedure [facility] Start: 02-12-2023 Influenza vaccination Sequenti al Influenza Vaccine (#1) [facility] Start: 12-25-2022 End: 12-25-2022 Clinical Support 12/25/2022 10:00 AM EDT Clinical Support [facility] [address] [place] [id number] Taqueria Leavitt AuD [address] [place] [address] [facility] Start: 05-12-2022 3 comp foot exam completed DIABETIC FOOT EXAM [facility] Start: 05-12-2022 ANNUAL PCP TEAM CUSTOM SKI MAKER DESHAUN DISEASE VISIT ANNUAL PCP TEAM CHRONIC DISEASE VISIT [facility] Start: 04-23-2022 Hepatitis B surface antibody level LDL CHOLESTEROL [facility] Start: 04-15-2022 End: 06-15-2022 ALBUMIN/CREAT RATIO RND UR ALBUMIN/CREAT RATIO RND UR Lab Routine Type 2 diabetes mellitus without complication, with long-term current use of insulin (HCC) Expected: 04/15/2022, Expires: 06/15/2022 [facility] Work Phone: Immunizations Immunization Date Immunization Notes Care Provider Cheikh burdick 04-07-2021 influenza, high dose seasonal, preservative-free Aurelia Ryder [facility] 08-16-2020 COVID-19 vaccine, ag e 12+ yr ([employer]-ShipeyNT[employer] - PURPLE TOP) Aurelia Ryder [facility] 07-26-2020 COVID-19 vaccine, ag e 12+ yr ([employer] - PURPLE TOP) [facility] 06-12-2020 zoster vaccine recombinant [facility] 02-15-2020 influenza, high dose seasonal, preservative-free [facility] 02-15-2020 influenza, injectabl e, quadrivalent, preservative free [facility] Work Phone: 02-15-2020 pneumococcal conjuga te vaccine, 13 valent [facility] Work Phone: 02-15-2020 zoster vaccine recombinant [facility] Work Phone: 03-21-2019 Influenza, injectabl e, Madin Joanne Canine Kidney, preservative free, quadrivalent [facility] Work Phone: 03-15-2019 influenza, high dose seasonal, preservative-free [facility] Work Phone: 04-12-2018 influenza, high dose seasonal, preservative-free [facility] Work Phone: 03-31-2017 influenza, high dose seasonal, preservative-free [facility] Work Phone: 03-16-2016 influenza, high dose seasonal, preservative-free [facility] Work Phone: 03-14-2015 influenza, high dose seasonal, preservative-free [facility] 03-01-2015 pneumococcal conjuga te vaccine, 13 valent [facility] 03-28-2014 influenza, seasonal, injectable [facility] 02-22-2014 pneumococcal polysaccharide vaccine, 23 valent [facility] 03-25-2013 influenza virus vacc ine, unspecified formulation [facility] 05-10-2012 influenza virus vacc ine, unspecified formulation [facility] Work Phone: 08-26-2011 tetanus toxoid, redu isi diphtheria toxoid, and acellular pertussis vaccine, adsorbed [facility] 03-25-2010 influenza virus vacc ine, whole virus [facility] Work Phone: 03-05-2009 influenza virus vacc ine, unspecified formulation Aurelia [facility] 12-31-2008 zoster vaccine, live Aurelia [facility] Work Phone: 05-01-2008 influenza virus vacc ine, unspecified formulation Aurelia [facility] 04-22-2007 influenza virus vacc ine, unspecified formulation Aurelia [facility] Work Phone: 03-01-2007 pneumococcal polysaccharide vaccine, 23 valent [facility] Payers Date Payer Category Payer Medicare [id number] 2010 Medicare AETNA MEDICARE A ETNA MEDICARE PPO [id number] 2010-Present [phone] [address] [place] [address] PPO [id number] 2010 Medicare [id number] 1945 Unknown [id number] 1945 Unknown [id number] 1945 Unknown [id number] 1945 Unknown [id number] 1945 Unknown [id number] 1945 Unknown [id number] 1945 Unknown [id number] 1945 Unknown [id number] 1945 Unknown [id number] 1945 Unknown [id number] Social History Date Type Detail Facility Start: 11-24-2022 Tobacco smoking stat [facility] Never smoked tobacco [facility] Start: 05-12-2021 Alcohol intake Current drinke r of alcohol (finding) [facility] Start: 01-13-2020 End: 04-17-2020 History SDOH Alcohol Frequency 2 [facility] Start: 01-13-2020 End: 04-17-2020 History SDOH Alcohol Std Drinks 1 [facility] Start: 04-18-2007 History SDOH Alcohol Comment Seldom [facility] Start: 04-17-2020 History SDOH Social Connections Get Together 98 [facility] Start: 01-13-2020 History SDOH Social Connections Meetings 3 [facility] Start: 01-13-2020 History SDOH Physica l Activity DPW 0 [facility] Start: 01-13-2020 History SDOH Financial 5 [facility] Start: 01-12-2020 Education 16 [facility] Start: 1945 Sex Assigned At Not on file C [facility] Start: 11-24-2022 Tobacco use and exposure Smoke less tobacco non-user [facility] Start: 11-24-2022 End: 02-23-2023 Alcohol intake Lifetime non-drinker (finding) [facility] Start: 11-24-2022 End: 02-23-2023 History of Social function [facility] Start: 11-24-2022 End: 02-23-2023 Tobacco use panel [facility] Medical Equipment Procedure Code Equipment Code Equipment Origin al Text Equipment Identifier Dates Graft Dura 3x1in Duragen + - [id number] Start: 11-07-2013 Clinical Notes 11-24-2013 to 04-28-2023 Taqueria Leavitt, AuD - 04/28/2023 2:32 PM Taqueria Felder AuD - 02/23/2023 2:12 PM Virgie Latham MD - 02/23/2023 1:59 PM Eliana Arellano MA - 02/23/2023 1:15 PM EDT Note Date & Type Note Facility 04-28-2023 History of Presen t illness Narrative Images from the original note were not included. [facility] Physician [facility] [address] [address] Name: Corinna Jeffery : 1945 Date: 04/28/23 Hearing Aid Contact Note: Ms. Jeffery returned for a hearing aid adjustment. She commented that she would like to hear speech better, but would not like more volume of environmental sounds, such as slamming doors and crinkling paper. I turned her hearing aid up from 90% target to 100% target and turned off occlusion correction. I also increased the NoiseBlock and SoundRelax features. Ms. Jeffery felt the changes made today were an improvement. She expressed concern that the hearing in her right ear has declined since the most recent evaluation. At her request, hearing in the right ear was re-evaluated, with no significant change noted today. She also expressed that she was very satisfied with the Resound hearing aid that she previously used in her left ear. She inquired about the possibility to configure it to the right ear to have as a back-up device. That certainly is a possibility, but currently [facility] does not offer Resound devices or services for them. I am actually in the process right now of seeing if that can be changed, so perhaps in the future I can offer that. She realizes she would need to purchase a whiskey proof reader for the right side. I recommended the next follow up in four months. Electronically Signed by: Taqueria Milan, [facility] 04/28/23 2:32 PM documented in this encounter [facility] 02-23-2023 History of Presen t illness Narrative Images from the original note were not included. [facility] Physician [facility] [address] [address] Name: Corinna Jeffery : 1945 Date: 02/23/23 Hearing Aid Contact Note: Ms. Jeffery returned to our office today for an appointment with Dr. Rahman. While she was here she expressed that she would like to try a smaller dome on her hearing aid. That change was made and the hearing aid was recalculated and calibrated to the change. I also turned the hearing aid up to 90% target, and reduced the occlusion correction to weak. At her previous visit we planned to follow up in two months (one month from now). Since we followed up today, sooner than planned, we rescheduled the next appointment for two months from now. Electronically Signed by: YANICK Cordero 02/23/23 2:12 PM documented in this encounter [facility] 02-23-2023 History of Presen t illness Narrative [facility] [address] [facility] [address] [facility] [address] Dept: [phone] Virgie Ramhan MD Corinna Jeffery 77 y.o. female Patient presents with a chief complaint of Follow-up (Follow up hearing loss with audio) Temp 97.9 F (36.6 C) (Temporal) Ht 5' 4.25 Wt 83.6 kg (184 lb 3.2 oz) BMI 31.37 kg/m History of Presenting Illness: The patient/caregiver reports a history of complaint with the following features: She reports that she is not doing as well as she had hoped with her right hearing aid. This fluctuates in its function and her hearing seems to go in and out, some days it is good, others, no benefit is given. She denies ear pain or popping. Review of systems covering 10 systems is reviewed and pertinent positives and negatives are noted as above. Past Medical History: Diagnosis Date Diabetes (HCC) Diverticulosis Hearing loss Hyperlipidemia Hypertension Hypothyroidism Neuropathic pain Spinal stenosis of lumbar region Current Outpatient Medications: atorvastatin (LIPITOR) 20 MG tablet, , Disp: , Rfl: benazepril-hydrochlorthiazide (LOTENSIN HCT) 20-12.5 mg per tablet, , Disp: , Rfl: blood sugar diagnostic strips, See Admin Instructions ., Disp: , Rfl: diclofenac sodium (VOLTAREN) 75 MG EC tablet, , Disp: , Rfl: gabapentin (NEURONTIN) 300 MG capsule, , Disp: , Rfl: gabapentin (NEURONTIN) 600 MG tablet, , Disp: , Rfl: levothyroxine (SYNTHROID, LEVOTHROID) 150 MCG tablet, Take 1 (one) tablet (150 mcg total) by mouth daily ., Disp: , Rfl: metFORMIN (GLUCOPHAGE-XR) 500 MG 24 hr tablet, , Disp: , Rfl: Allergies Allergen Reactions Adhesive Itching rash, blisters, skin peels off Lactose GI Intolerance Past Surgical History: Procedure Laterality Date ACHILLES TENDON SURGERY 1996 COLONOSCOPY 12/01/2006 COLONOSCOPY 2017 HYSTERECTOMY 1980 LAMINECTOMY 11/07/2013 placement of bone anchored hearing device 09/06/2020 Dr. Rahman SKIN LESION EXCISION 2010 TOTAL KNEE REPLACEMENT ( CAMILLE TRIATHALON) Bilateral 2005 Social History Socioeconomic History Marital status: Tobacco Use Smoking status: Never Smokeless tobacco: Never Substance and Sexual Activity Alcohol use: Never Drug use: Never Family History Problem Relation Age of Onset Osteoarthritis Father Hypertension Father Cancer Father PHYSICAL EXAM: The patient was examined today 02/23/2023 with findings as follows: CONSTITUTIONAL: General Appearance: well-appearing, nontoxic, alert, no acute distress Communication: normal voicing, hearing intact to spoken voice, hearing with hearing aids HEAD/FACE: Head: atraumatic, normocephalic, no lesions, PONTO abutment in place, clean and dry left scalp Facial Inspection: no lesions, healthy skin Facial Strength: motor strength normal, symmetric strength, symmetric movement EYES: Pupils: PERRLA, extra-ocular movements intact, no nystagmus, sclera white, no redness of eyes, no watering of eyes EARS: Bilateral External Ears: no pits, no tags Right External Ear: normally formed, no lesions, no mastoid tenderness Left External Ear: normally formed, no lesions, no mastoid tenderness Right External Auditory Canal: normal, healthy skin, no obstructing cerumen, no discharge Left External Auditory Canal: normal, healthy skin, obstructing cerumen removed, no discharge Right Tympanic Membrane: normal landmarks, translucent Left Tympanic Membrane: normal landmarks, translucent Hearing: reduced to spoken voice NECK: Neck: no masses, trachea midline, normal range of motion, no cysts or pits, no tenderness to palpation LYMPH NODES: Cervical: no palpable lymph node enlargement SKIN: General Appearance: no lesions, warm and dry, normal turgor, no bruising PSYCHIATRIC: Mood and affect: normal mood, normal affect Assessment and Plan: I see no middle ear disease. She complains that her ear mold is uncomfortable. I have replace this is a small open mold that is similar to what she had in the past and this is reported to more comfortable for her. The causes of hearing loss are discussed in the context of the patient's history and exam findings. We have discussed that exposure to excess environmental noise can result in worsened symptoms and that hearing protection in high noise environments is recommended. We have discussed that hearing aids can be helpful when hearing loss is disruptive and the features of hearing loss that respond well to amplification. An appointment with the title processor in the office is offered if the patient wishes to explore options in this regard. The patient and/or caregiver is able to state an understanding of these recommendations and is agreeable to the treatment plan. 1. Sensorineural hearing loss, unilateral, left ear, with restricted hearing on the contralateral side Return in about 6 months (around 08/24/2023). The patient and/or caregiver is to notify the office if no improvement or worsening of symptoms is noted prior to the scheduled follow-up for sooner evaluation. The patient and/or caregiver is able to state an understanding of these recommendations and is agreeable to the treatment plan. --Virgie Rahman MD on 02/23/2023 at 4:46 PM An electronic signature was used to authenticate this note. Review of Systems Constitutional: Negative. HENT: Positive for hearing loss and rhinorrhea. Eyes: Negative. Negative for discharge and itching. Respiratory: Negative. Cardiovascular: Negative. Gastrointestinal: Negative. Genitourinary: Negative. Musculoskeletal: Negative. Skin: Negative. Allergic/Immunologic: Positive for food allergies. Neurological: Negative. Hematological: Negative. Psychiatric/Behavioral: Negative. documented in this encounter [facility] 01-22-2023 History of Presen t illness Narrative Images from the original note were not included. [facility] [address] [address] Name: Corinna Jeffery : 1945 Date: 01/22/23 Hearing Aid Contact Note: Corinna Jeffery returned for a hearing aid adjustment. Hearing aids were turned up to 90% target and occlusion correction was reduced to medium. Ms. Jeffery commented that within the past few days her hearing aid seemed to stop working. She said she did replace the filter. Upon inspection I did find a new filter in the whiskey proof reader, but the old one was also still in place. I removed both and replaced with one new filter while reviewing/demonstrating to Ms. Jeffery how to do so. Subjective listening check was then good, she agreed. Otoscopy revealed clear canal. Next hearing aid adjustment in two months was recommended. Electronically Signed by: Taqueria Milan [facility] 01/22/23 10:48 AM documented in this encounter [facility] 12-10-2022 History of Presen t illness Narrative Images from the original note were not included. [facility] [address] [address] Name: Corinna Jeffery : 1945 Date: 12/10/22 Hearing Aid Consult Note: Corinna Jeffery returned today for a hearing aid fitting. Ms. Jeffery is a previous hearing aid user. She was fit with one Phonak Wecasheo L90-RT hearing aid for the right ear. Proper insertion, removal, use, and care were discussed and practiced. At Ms Jeffery's request, her hearing aid was paired to her phone for streaming but not for use of the [employer] lucian. She is aware of the option of adding the lucian if she desires it in the future. We discussed and signed all appropriate paperwork, and Ms. Jeffery was provided copies to keep for her records. We discussed in detail the fact that she may have benefits for hearing aids through her insurance plan, but I suspect this may be a managed care plan with a third-[place] vendor, with which [facility] may not be contracted. I informed her that may be an option for her if she sees a contracted provider. She again stated that she wants to continue care with us and wanted to proceed with the hearing aids, even if that means she is self-pay for the hearing aids. That was noted on the benefits acknowledgement form. Ms Jeffery will return as scheduled for hearing aid conformity evaluation, or sooner if there are any issues. She expressed understanding of and agreement with the above. Electronically Signed by: Kayli Rayo, [facility] 12/10/22 11:39 AM documented in this encounter [facility] 12-02-2022 History of Presen t illness Narrative Images from the original note were not included. [facility] [place] [id number] Name: Corinna Jeffery : 1945 Date: 12/02/22 Hearing Aid Consultation Note: Corinna Jeffery returned for hearing aid consultation, selection, and measurements. Ms Jeffery currently wears an Oticon Ponto osseointegrated hearing device on the left side. Various hearing aid options, benefits, and limitations were discussed for her right ear. Hearing aid goals were established using the NAL Client Oriented Scale of Improvement (COSI) and Mehul's listening needs questionnaire. See below for details. In addition to listening needs discussed, Ms. Jeffery expressed that a rechargeable option is important to her. reported she does not have insurance benefits for hearing aids. [facility]'s HCAP program was offered but she was not interested in using that option. The following hearing aid(s) were ordered: One Phonak Audeo L90-RT in sand beige (P1) color with size 2R MP whiskey proof reader and power domes. Final order was not placed through [employer] yet. Ms. Jeffery and I also spoke about Resound hearing aids, which she has used in the past, and favors. At the time of her appointment, I was not sure Resound was an option. I offered to look into that and give her an update before I process the order. I have since learned that Resound hearing aids are not an option through [facility]. I left a message on Ms. Jeffery's answering machine to return my call. I will then proceed with Phonak order, pending her approval. 12-04-22: I spoke with Ms. Jeffery on the phone. She approved the change from Resound to Phonak. Hearing aid was ordered. Ms. Jeffery will return as for hearing aid fitting (to be scheduled when the hearing aid arrives), or as needed for hearing and/or hearing aid concerns. Ms. Jeffery expressed understanding of and agreement with the above. Electronically Signed by: Kayli Rayo, [facility]/[place] [email or web address]@ documented in this encounter [facility] 04-15-2022 Miscellaneous Notes Last Office Visit: 05/12/2021 Future Office Visit: None Requested Prescriptions Pending Prescriptions Disp Refills levothyroxine (SYNTHROID) 150 mcg tablet 90 tablet 0 Sig: Take 1 tablet by mouth once daily. diclofenac, EC, (VOLTAREN) 75 mg EC tablet 180 tablet 0 Sig: Take 1 tablet by mouth twice daily. Date of Last Labs: 04/23/2021 documented in this encounter [facility] 01-28-2022 Note HNO ID: [id number] Author: Mamie Vargas MA Service: ? Author Type: Group Segment Consultant Type: Progress Notes Filed: 01/28/2022 4:39 PM Note Text: POPULATION HEALTH NAVIGATION OUTREACH Action/I January 28, 2022 DM Management Outreach DM with Fernando Yun MD was 05.12.2021 Outcome: LM on voicemail for patient to return call My chart message also sent Pt identified by name and : NO Outreach Outcome/Action Unable to reach patient: Left message MyChart message sent Did you use a PCP flex slot to schedule this appointment? N/A Reason for Outreach Medical [facility] Diabetes Management Payer: Payor: A[employer]NA MEDICARE / Plan: AETNA MEDICARE PPO / Product Type: PPO / Care Gap Reviewed:: Annual Wellness visit Reminder: Reminder note to check Health Maintenance for items below Health Maintenance items due: DEPRESSION SCREENING due on 04/12/2019 BP CONTROLLED (<130/80) due on 04/14/2019 URINE ALBUMIN:CREATININE RATIO due on 04/03/2021 ADVANCE DIRECTIVE DISCUSSION Never done COVID-19 VACCINE(4 - Booster for Pfizer series) due on 07/18/2021 DTAP,TDAP,TD(2 - Td or Tdap) due on 08/25/2021 HBA1C due on 10/21/2021 DILATED RETINAL EXAM due on 12/06/2021 Message Sent to Practice: No Navigation Signature: Mamie Vargas MA January 28, 2022 4:31 PM [facility] 01-28-2022 History of Presen t illness Narrative POPULATION HEALTH NAVIGATION OUTREACH Action/I January 28, 2022 DM Management Outreach DM with Fernando Yun MD was 11.29.2020 Outcome: LM on voicemail for patient to return call My chart message also sent Pt identified by name and : NO Outreach Outcome/Action Unable to reach patient: Left message MyChart message sent Did you use a PCP flex slot to schedule this appointment? N/A Reason for Outreach Medical [facility] Diabetes Management Payer: Payor: AETNA MEDICARE / Plan: AETNA MEDICARE PPO / Product Type: PPO / Care Gap Reviewed:: Annual Wellness visit Reminder: Reminder note to check Health Maintenance for items below Health Maintenance items due: DEPRESSION SCREENING due on 04/12/2019 BP CONTROLLED (<130/80) due on 04/14/2019 URINE ALBUMIN:CREATININE RATIO due on 04/03/2021 ADVANCE DIRECTIVE DISCUSSION Never done COVID-19 VACCINE(4 - Booster for Pfizer series) due on 07/18/2021 DTAP,TDAP,TD(2 - Td or Tdap) due on 08/25/2021 HBA1C due on 10/21/2021 DILATED RETINAL EXAM due on 12/06/2021 Message Sent to Practice: No Navigation Signature: Mamie Vargas MA January 28, 2022 4:31 PM documented in this encounter [facility] 01-28-2022 Note Patient Outreach (NE TNAV) CORINNA JEFFERY ([id number]) 1945 F Date Time Provider Department 01/28/22 MAMIE VARGAS During your visit today, we recorded the following information about you: Mamie Vargas MA 01/28/2022 4:39 PM Signed POPULATION HEALTH NAVIGATION OUTREACH Action/I January 28, 2022 DM Management Outreach DM with Fernando Yun MD was 11.29.2020 Outcome: LM on voicemail for patient to return call My chart message also sent Pt identified by name and : NO Outreach Outcome/Action Unable to reach patient: Left message Reconnext message sent Did you use a PCP flex slot to schedule this appointment? N/A Reason for Outreach Medical [facility] Diabetes Management Payer: Payor: AETNA MEDICARE / Plan: AETNA MEDICARE PPO / Product Type: PPO / Care Gap Reviewed:: Annual Wellness visit Reminder: Reminder note to check Health Maintenance for items below Health Maintenance items due: DEPRESSION SCREENING due on 04/12/2019 BP CONTROLLED (<130/80) due on 04/14/2019 URINE ALBUMIN:CREATININE RATIO due on 04/03/2021 ADVANCE DIRECTIVE DISCUSSION Never done COVID-19 VACCINE(4 - Booster for Pfizer series) due on 07/18/2021 DTAP,TDAP,TD(2 - Td or Tdap) due on 08/25/2021 HBA1C due on 10/21/2021 DILATED RETINAL EXAM due on 12/06/2021 Message Sent to Practice: No Navigation Signature: Mamie Vargas MA January 28, 2022 4:31 PM Allergies As of Date: 01/28/2022 Noted Allergy Reaction Adhesives [Other] 12/21/2002 Comments: rash, blisters, skin peels off LACTOSE INTOLERANCE (LACTASE) 11/08/2013 6 - Diarrhea Date Reviewed: 01/21/2021 Reviewed by: Nandini Smith APRN.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 - atorvastatin (LIPITOR) 20 mg tablet Take 1 tablet by mouth daily at bedtime. For cholesterol. - levothyroxine (SYNTHROID) 150 mcg tablet Take 1 tablet by mouth once daily. - Benazepril-hydroCHLOROthiazide 20-12.5 mg per tablet Take 1 tablet by mouth twice daily. - metFORMIN ER (GLUCOPHAGE XR) 500 mg 24 hr tablet Take 4 tablets by mouth daily with dinner. - acetaminophen (TYLENOL EXTRA STRENGTH) 500 mg tablet Take 1 tablet by mouth every 6 hours as needed for Pain. - blood sugar diagnostic (BLOOD GLUCOSE TEST) test strip Use as instructed Meds Comments as of 10/29/2010: Problem List As Of Date 01/28/2022 Noted Resolved Essential hypertension [I10] Hypothyroidism [E03.9] Mixed hyperlipidemia [E78.2] 12/08/2011 Lumbar radiculopathy [M54.16] 03/25/2012 DDD (degenerative disc disease), lumbar [M51.36]03/25/2012 Lumbar spondylosis [M47.816] 03/25/2012 07/11/2019 Lumbar stenosis [M48.061] 03/25/2012 BMI 35.0-35.9,adult [Z68.35] 11/24/2013 09/13/2015 Type 2 diabetes mellitus (HCC) [E11.9] 10/31/2013 09/13/2015 Type 2 diabetes mellitus without complication (*09/13/2015 BMI 33.0-33.9,adult [Z68.33] 09/13/2015 Sensorineural hearing loss (SNHL) of left ear w*11/06/2020 Encounter Status:Closed by MAMIE VARGAS on 01/28/22 [facility] 09-11-2021 Note HNO ID: [id number] Author: Aurelia Roe Service: ? Author Type: ? Type: Progress Notes Filed: 09/11/2021 1:22 PM Note Text: POPULATION HEALTH NAVIGATION OUTREACH Action/FYI: [employer] Care Gaps Discuss/due:Advance Directives, Dilated Retinal Exam 12/06/21 or after Outcome: Left voice mail and sent MyChart message Pt identified by name and : NO Outreach Outcome/Action Unable to reach patient: Left message MyChart message sent Reason for Outreach Care Gap or Scheduling/Wellness visits Payer: Payor: AETNA MEDICARE / Plan: AETNA MEDICARE PPO / Product Type: PPO / Care Gap Reviewed:: Diabetic Eye Exam Reminder: Reminder note to check Health Maintenance for items below Health Maintenance items due: DEPRESSION SCREENING due on 04/12/2019 BP CONTROLLED (<130/80) due on 04/14/2019 URINE ALBUMIN:CREATININE RATIO due on 04/03/2021 ADVANCE DIRECTIVE DISCUSSION Never done DTAP,TDAP,TD(2 - Td or Tdap) due on 08/25/2021 Message Sent to Practice: No Navigation Signature: Aurelia Ryder Population Health Navigator September 11, 2021 12:49 PM [facility] 09-11-2021 Note Patient Outreach (NE TNAV) CORINNA JEFFERY ([id number]) 1945 F Date Time Provider Department 09/11/21 AURELIA RYDER (MARIANO) LISETTE During your visit today, we recorded the following information about you: Aurelia Ryder [facility] 09/11/2021 1:22 PM Signed POPULATION HEALTH NAVIGATION OUTREACH Action/FYI: [employer] Care Gaps Discuss/due:Advance Directives, Dilated Retinal Exam 12/06/21 or after Outcome: Left voice mail and sent MyChart message Pt identified by name and : NO Outreach Outcome/Action Unable to reach patient: Left message MyChart message sent Reason for Outreach Care Gap or Scheduling/Wellness visits Payer: Payor: [employer] MEDICARE / Plan: [employer] MEDICARE PPO / Product Type: PPO / Care Gap Reviewed:: Diabetic Eye Exam Reminder: Reminder note to check Health Maintenance for items below Health Maintenance items due: DEPRESSION SCREENING due on 04/12/2019 BP CONTROLLED (<130/80) due on 04/14/2019 URINE ALBUMIN:CREATININE RATIO due on 04/03/2021 ADVANCE DIRECTIVE DISCUSSION Never done DTAP,TDAP,TD(2 - Td or Tdap) due on 08/25/2021 Message Sent to Practice: No Navigation Signature: Aurelia Ryder Population Health Navigator September 11, 2021 12:49 PM Allergies As of Date: 09/11/2021 Noted Allergy Reaction Adhesives [Other] 12/21/2002 Comments: rash, blisters, skin peels off LACTOSE INTOLERANCE (LACTASE) 11/08/2013 6 - Diarrhea Date Reviewed: 01/21/2021 Reviewed by: Nandini Smith APRN.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 - atorvastatin (LIPITOR) 20 mg tablet Take 1 tablet by mouth daily at bedtime. For cholesterol. - levothyroxine (SYNTHROID) 150 mcg tablet Take 1 tablet by mouth once daily. - Benazepril-hydroCHLOROthiazide 20-12.5 mg per tablet Take 1 tablet by mouth twice daily. - metFORMIN ER (GLUCOPHAGE XR) 500 mg 24 hr tablet Take 4 tablets by mouth daily with dinner. - acetaminophen (TYLENOL EXTRA STRENGTH) 500 mg tablet Take 1 tablet by mouth every 6 hours as needed for Pain. - blood sugar diagnostic (BLOOD GLUCOSE TEST) test strip Use as instructed Meds Comments as of 10/29/2010: Problem List As Of Date 09/11/2021 Noted Resolved Essential hypertension [I10] Hypothyroidism [E03.9] Mixed hyperlipidemia [E78.2] 12/08/2011 Lumbar radiculopathy [M54.16] 03/25/2012 DDD (degenerative disc disease), lumbar [M51.36]03/25/2012 Lumbar spondylosis [M47.816] 03/25/2012 07/11/2019 Lumbar stenosis [M48.061] 03/25/2012 BMI 35.0-35.9,adult [Z68.35] 11/24/2013 09/13/2015 Type 2 diabetes mellitus (HCC) [E11.9] 10/31/2013 09/13/2015 Type 2 diabetes mellitus without complication (*09/13/2015 BMI 33.0-33.9,adult [Z68.33] 09/13/2015 Sensorineural hearing loss (SNHL) of left ear w*11/06/2020 Encounter Status:Closed by AURELIA RUDOLPH on 09/11/21 [facility] 09-11-2021 History of Presen t illness Narrative POPULATION HEALTH NAVIGATION OUTREACH Action/FYI: [employer] Care Gaps Discuss/due:Advance Directives, Dilated Retinal Exam 12/06/21 or after Outcome: Left voice mail and sent [email or web address] message Pt identified by name and : NO Outreach Outcome/Action Unable to reach patient: Left message MyChart message sent Reason for Outreach Care Gap or Scheduling/Wellness visits Payer: Payor: [employer] MEDICARE / Plan: [employer] MEDICARE PPO / Product Type: PPO / Care Gap Reviewed:: Diabetic Eye Exam Reminder: Reminder note to check Health Maintenance for items below Health Maintenance items due: DEPRESSION SCREENING due on 04/12/2019 BP CONTROLLED (<130/80) due on 04/14/2019 URINE ALBUMIN:CREATININE RATIO due on 04/03/2021 ADVANCE DIRECTIVE DISCUSSION Never done DTAP,TDAP,TD(2 - Td or Tdap) due on 08/25/2021 Message Sent to Practice: No Navigation Signature: Aurelia Ryder Population Health Navigator September 11, 2021 12:49 PM documented in this encounter [facility] 05-12-2021 Note HNO ID: [id number] Author: Fernando Yun MD Service: ? Author Type: Physician Type: Progress Notes Filed: 05/12/2021 11:14 AM Note Text: Patient presents with: 6 Month Exam HPI: Patient presents today for office visit for follow up. Just saw Dr. Cadena. He referred her to pain management. Her pain continues. Offered to have her see another. Was not happy with previous experience. Denies chest pain or shortness of breath. No edema. Sugars have been stable. See previous ov: Neuropathy: in feet gabapentin not working as well anymore ? ? HPI: Patient presents today for office visit for follow up. ? DM: Reports overall feeling well. Medication side effects: No. Home sugar check frequency/results:slightly higher. Hypoglycemic spells: No. Watching diet: Overall Ok. Admits to not drinking enough. . Polyuria, polydipsia: No. Vision Changes: No. HYPOTHYROID: Patient is compliant with medications: Yes Patient has changes in energy: No Patient has changes in hair or skin: No Patient has temperature intolerance: No Patient has weight changes: No ? HYPERLIPIDEMIA: Patient is taking medications: Yes. Patient is watching diet: Yes. Patient denies myalgias: Yes. Patient denies gi upset: Yes ? 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 Is on high doses of gabapentin. Has worsening back issues. Did pain management a number of years ago. ? Component Latest Ref Rng AND Units 02/13/2021 04/23/2021 Cholesterol, Total <200 mg/dL 117 Triglyceride <150 mg/dL 183 (H) HDL Cholesterol >39 mg/dL 35 (L) LDL Cholesterol <100 mg/dL 45 Non HDL Cholesterol <130 mg/dL 82 Fasting Time hrs 13 VLDL Cholesterol <30 mg/dL 37 (H) TC:HDL Ratio <5.10 3.34 LDL:HDL Ratio <2.54 1.29 Hemoglobin A1C 4.3 - 5.6 % 7.4 (H) 7.2 (H) Estimated Average Glucose mg/dL 166 160 MEDICATIONS: Current Outpatient Medications Medication Sig - metFORMIN ER (GLUCOPHAGE XR) 500 mg 24 hr tablet Take 4 tablets by mouth daily with dinner. - atorvastatin (LIPITOR) 20 mg tablet Take 1 tablet by mouth daily at bedtime. For cholesterol. - Benazepril-hydroCHLOROthiazide 20-12.5 mg per tablet Take 1 tablet by mouth twice daily. - gabapentin (NEURONTIN) 300 mg capsule Take 900 mg in am , 600 mg at noon, 900 mg evening meal and 600 mg bedtime - gabapentin (NEURONTIN) 600 mg tablet Take 900 mg in am, 600 at noon, 900 mg evening meal, and 600 mg at bedtime Combine 600 mg tab with a 300 mg tab for the 900 mg doses - diclofenac, EC, (VOLTAREN) 75 mg EC tablet Take 1 tablet by mouth twice daily. (Patient taking differently: Take 75 mg by mouth twice daily. 01/15/20: Pt requests that this not be refilled. Has a years worth at home. ) - levothyroxine (SYNTHROID) 150 mcg tablet Take 1 tablet by mouth once daily. - acetaminophen (TYLENOL EXTRA STRENGTH) 500 mg tablet Take 1 tablet by mouth every 6 hours as needed for Pain. - blood sugar diagnostic (BLOOD GLUCOSE TEST) test strip Use as instructed No current facility-administered medications for this visit. ALLERGIES: ALLERGIES Allergen Reactions - Adhesives [Other] rash, blisters, skin peels off - Lactose Intolerance* Diarrhea PAST MEDICAL HISTORY Diagnosis Date - Abnormal ECG 09/25/2013 - Diverticulosis of colon (without mention of hemorrhage) - Elevated LFTs 11/13/2013 - Hearing aid worn - Melanocytic nevus of trunk 10/29/2010 - Meningitis, unspecified(322.9) 02/15/2007 In hospital for 1 Week - Neuropathic pain - Spinal stenosis, lumbar region, without neurogenic claudication - Type 2 diabetes mellitus (HCC) 10/31/2013 - Unspecified essential hypertension Essential hypertension - Unspecified hypothyroidism Hypothyroidism PAST SURGICAL HISTORY Procedure Laterality Date - COLONOSCOP W/ OR W/O BRSH SPEC 12/01/06, 2017 - LAMINECTOMY,>2 SGMT,LUMBAR 11/07/2013 Dr Fisher - PAST SURGICAL HISTORY OF 2000 ATTEMPT REPAIR ACHILLES TENDON RIGHT - PAST SURGICAL HISTORY OF 1996 LEFT ACHILLES TENDON REMOVED CALCIUM - PAST SURGICAL HISTORY OF Left 09/06/2020 placement of bone anchored hearing device Dr Rahman - REM LESIO TRUNK,ARM,LEG 1.1 -2.0CM 10/29/2010 Exc. left mid back skin lesion - SKIN BX, 1 LESION 09/24/2010 Punch bx left mid back skin lesion - TOTAL ABDOM HYSTERECTOMY 1980 Hysterectomy, JUSTIN - TOTAL KNEE REPLACEMENT 11/04/2004 Knee replacement, total LEFT - TOTAL KNEE REPLACEMENT 03/03/2005 Knee replacement, total RIGHT FAMILY HISTORY Problem Relation Age of Onset - Hypertension Father - Cancer Father LUNG - Arthritis Father - other (Other) Father No breast/ob/gyn/colon cancer Social History Tobacco Use - Smoking status: Never Smoker - Smokeless tobacco: Never Used Substance Use Topics - Alcohol use: Yes Comment: Seldom - Drug use: No Reviewed current medications, allergies, past medical history, surgical history, family history and social history today. REVIEW OF SYSTEMS All other re (more content not included)... [facility] documented as of this encounter (statuses as of 09/11/2021) [facility] History of Past illness Narrative* Problem Noted Date Resolved Date BMI 35.0-35.9,adult 11/24/2013 09/13/2015 Type 2 diabetes mellitus 10/31/2013 016 Lumbar spondylosis 03/25/2012 07/11/2019 documented as of this encounter (statuses as of 01/28/2022) [facility] History of Past illness Narrative* Problem Noted Date Resolved Date BMI 35.0-35.9,adult 11/24/2013 09/13/2015 Type 2 diabetes mellitus 10/31/2013 016 Lumbar spondylosis 03/25/2012 07/11/2019 documented as of this encounter (statuses as of 04/15/2022) [facility] note* Diagnosis Hypothyroidism, unspecified type- Primary Hyperlipidemia, unspecified hyperlipidemia type Type 2 diabetes mellitus without complication, with long-term current use of insulin (HCC) [facility] Diagnosis Sensorineural hearing loss, bilateral- [facility] Sensorineural hearing loss, bilateral- Primary [facility] Diagnosis Sensorineural hearing loss, unilateral, left ear, with restricted hearing on the contralateral side- Primary documented in this encounter [facility] Summary Purpose Family History No Family History Records FoundNo Family History Records FoundNo Family History Records Found Advance Directives No Advanced Directives Records FoundDocuments on File Type Date Recorded 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 Advance Directive(s) 12/01/2016 8:09 AM Additional Source Comments INFORMATION SOURCE (unrecogn ized section and content) DATE CREATED AUTHOR AUTHOR'S ORGANIZ ATION 02/04/2022 [facility] DATE CREATED AUTHOR AUTHOR'S ORGANIZ ATION 04/30/2023 [facility] Source Comments (unrecognize d section and content) In the event this informatio n is protected by the Federal Confidentiality of Alcohol and Drug Abuse Patient Records regulations: The Federal rules restrict any use of the information to criminally investigate or prosecute any alcohol or drug abuse patient.[facility] the event this information is protected by the Federal Confidentiality of Alcohol and Drug Abuse Patient Records regulations: The Federal rules restrict any use of the information to criminally investigate or prosecute any alcohol or drug abuse patient.[facility] the event this information is protected by the Federal Confidentiality of Alcohol and Drug Abuse Patient Records regulations: The Federal rules restrict any use of the information to criminally investigate or prosecute any alcohol or drug abuse patient.[facility] Reason for Visit (unrecogniz ed section and content) Reason Onset Date Comments Population Health Navigation Outreach 01/28/2022 DM Management Reason Onset Date Comments Refill Request 04/15/2022 Reason Comments Follow-up Follow up hearing lo ss with audio Care Teams (unrecognized sec tion and content) Waste Water Worker Relationship Specialty Start Date End Date Fernando Yun MD [address] [place] [address] PCP - General Family Practice 10/06/18 Waste Water Worker Relationship Specialty Start Date End Date Fernando Yun MD [address] [place] [address] PCP - General Family Medicine 10/06/18 Waste Water Worker Relationship Specialty Start Date End Date Dolly Case MD [address] [place] [address] PCP - General Internal Medicine 11/11/22 Waste Water Worker Relationship Specialty Start Date End Date Dolly Case MD [address] [place] [address] PCP - General Internal Medicine 11/11/22 Waste Water Worker Relationship Specialty Start Date End Date Dolly Case MD [address] [place] [address] PCP - General Internal Medicine 11/11/22 FOR RECORDS PERTAINING TO PATIENTS WHO ARE OR HAVE BEEN ENROLLED IN A CHEMICAL DEPENDENCY/SUBSTANCEABUSE PROGRAM, SOME INFORMATION MAY BE OMITTED. This clinical summary was aggregated from multiple sources. Caution should be exercised in using it in the provision of clinical care. This summary normalizes information from multiple sources, and as a consequence, information in this document may materially change the coding, format and clinical context of patient data. In addition, data may be omitted in some cases. CLINICAL DECISIONS SHOULD BE BASED ON THE PRIMARY CLINICAL RECORDS. [employer] [facility]. provides no warranty or guarantee of the accuracy or completeness of information in this document.
[2023-06-23 09:41] LABS: Absolute Lymphocyte Count 2.53 X10^3/uL (0.83-4.51); Absolute Neutrophil Count 5.1 X10^3/uL (2.0-7.7); Basophil# 0.09 X10^3/uL; Eosinophil# 0.44 X10^3/uL; Hematocrit 37.3 % (37-47); Hemoglobin 12.2 g/dL (12.0-15.0); Lymphocyte # 2.53 X10^3/ul (0.83-4.51); Lymphocyte % 28.7 % (19-41); Mean Corp Hgb Conc 32.7 g/dL (32-36); Mean Corpuscular Hgb 29.8 pg (27.0-32.0); Mean Platelet Vol. 10.3 fl (6.2-12.0); Monocyte# 0.59 X10^3/uL; Monocyte% 6.7 % (0-10); NRBC Flagged by Analyzer 0 % (0-5); Neutrophil # 5.14 X10^3/uL (2.7-7.7); Neutrophil % 58.3 % (47-70); Platelet Count 283 K/mm3 (150-450); RBC Distribution Width SD 42.7 fl (35.1-43.9); White Blood Count 8.8 K/mm3 (4.4-11.0)
[2023-06-23 10:20] LABS: ALB/GLOB Ratio 0.9 RATIO (0.9-2.4); AST(SGOT) 16 U/L (15-37); Alanine Aminotransfer ALT/SGPT 19 U/L (13-56); Albumin, Serum 3.6 g/dL (3.2-5.0); Alkaline Phosphatase 101 U/L (45-117); Anion Gap 7 (5-15); BUN 25 mg/dL (7-18); BUN/Creat Ratio 36.1 RATIO (10-20); Calcium,Total 9.8 mg/dL (8.5-10.1); Chloride 98 mmol/L (98-107); Cholesterol 130 mg/dL (200); Creatinine, Serum 0.69 mg/dL (0.55-1.02); EST Glomerular Filtration Rate 87 mL/min (>60); Est Glom Filt Rate - Afr Amer 105 mL/min (>60); Free T3 1.2 pg/mL (2.18-3.98); Globulin 3.8 g/dL (2.2-4.2); Glucose 159 mg/dL (74-106); High Density Lipoprotein 43 mg/dL; Magnesium 1.4 mg/dL (1.6-2.6); Potassium 4.2 mmol/L (3.5-5.1); Protein, Total 7.4 g/dL (6.4-8.2); Sodium Level 135 mmol/L (136-145); T4 Free Direct 1.73 ng/dL (0.76-1.46); Thyroid Stim Hormone (TSH) 1.72 uIU/mL (0.358-3.74); Triglycerides 173 mg/dL; Very Low Density Lipoprotein 35 mg/dL (5-40)
[2023-06-23 12:21] LABS: Vitamin D,25 Hydroxy 52.2 ng/mL
[2023-06-23 13:45] LABS: Hemoglobin A1c 6.9 % (3.8-5.6)
== END | disposition home or self-care (01) ==
LOC: LAB 08:55
PROVIDERS: PCP Internal Medicine; Referring Provider Internal Medicine; Visit Provider Internal Medicine
DX: E03.9 Hypothyroidism, unspecified (principal); E11.69 Type 2 diabetes mellitus with other specified complication; I10 Essential (primary) hypertension; E66.9 Obesity, unspecified; E78.00 Pure hypercholesterolemia, unspecified; E55.9 Vitamin D deficiency, unspecified
CPT/HCPCS: 36415; 80053; 80061; 82306; 83036; 83735; 84439; 84443; 84481; 85025

== ENCOUNTER → 2023-12-22 | Outpatient (CLI) | payer MEDICARE, SELFPAY ==
[2023-12-22 12:19] LABS: Vitamin D,25 Hydroxy 39.2 ng/mL
[2023-12-22 12:23] LABS: Absolute Neutrophil Count 5.1 X10^3/uL (2.0-7.7); Basophil# 0.09 X10^3/uL; Eosinophil# 0.43 X10^3/uL; Eosinophils% 4.8 % (0-5); Hematocrit 37.9 % (37-47); Hemoglobin 12.4 g/dL (12.0-15.0); Lymphocyte % 30.1 % (19-41); Mean Corp Hgb Conc 32.7 g/dL (32-36); Mean Corpuscular Volume 91.5 fL (81-99); Mean Platelet Vol. 10.1 fl (6.2-12.0); Monocyte# 0.66 X10^3/uL; Monocyte% 7.3 % (0-10); NRBC Flagged by Analyzer 0 % (0-5); Neutrophil # 5.08 X10^3/uL (2.7-7.7); Neutrophil % 56.6 % (47-70); Platelet Count 264 K/mm3 (150-450); RBC Distribution Width CV 13.2 % (11.6-14.6); RBC Distribution Width SD 44.2 fl (35.1-43.9); Red Blood Count 4.14 M/mm3 (4.2-5.4)
[2023-12-22 12:33] LABS: Cholesterol 136 mg/dL (200); Free T3 1.4 pg/mL (2.18-3.98); High Density Lipoprotein 43 mg/dL; Magnesium 1.6 mg/dL (1.6-2.6); T4 Free Direct 1.87 ng/dL (0.76-1.46); Thyroid Stim Hormone (TSH) 0.64 uIU/mL (0.358-3.74); Triglycerides 226 mg/dL; Very Low Density Lipoprotein 45 mg/dL (5-40)
== END | disposition home or self-care (01) ==
LOC: BIMLAB 08:56
PROVIDERS: PCP Internal Medicine; Referring Provider Internal Medicine; Visit Provider Internal Medicine
DX: E11.69 Type 2 diabetes mellitus with other specified complication (principal); I10 Essential (primary) hypertension; E03.9 Hypothyroidism, unspecified; E66.9 Obesity, unspecified; E78.00 Pure hypercholesterolemia, unspecified; E55.9 Vitamin D deficiency, unspecified; Z13.220 Encounter for screening for lipoid disorders
CPT/HCPCS: 36415; 80061; 82306; 83036; 83735; 84439; 84443; 84481; 85025

== ENCOUNTER → 2023-12-28 | Outpatient (CLI) | payer MEDICARE, SELFPAY ==
[2023-12-28 12:20] LABS: AST(SGOT) 14 U/L (15-37); Alanine Aminotransfer ALT/SGPT 20 U/L (13-56); Albumin, Serum 3.4 g/dL (3.2-5.0); Alkaline Phosphatase 92 U/L (45-117); Anion Gap 9 (5-15); BUN 25 mg/dL (7-18); BUN/Creat Ratio 33.8 RATIO (10-20); Calcium,Total 9.5 mg/dL (8.5-10.1); Chloride 99 mmol/L (98-107); Creatinine, Serum 0.74 mg/dL (0.55-1.02); EST Glomerular Filtration Rate 81 mL/min (>60); Est Glom Filt Rate - Afr Amer 97 mL/min (>60); Globulin 3.5 g/dL (2.2-4.2); Glucose 138 mg/dL (74-106); Potassium 4.1 mmol/L (3.5-5.1); Protein, Total 6.9 g/dL (6.4-8.2); Sodium Level 137 mmol/L (136-145)
== END | disposition home or self-care (01) ==
LOC: BIMLAB 08:29
PROVIDERS: PCP Internal Medicine; Referring Provider Internal Medicine; Visit Provider Internal Medicine
DX: I10 Essential (primary) hypertension (principal); E11.69 Type 2 diabetes mellitus with other specified complication; E66.9 Obesity, unspecified
CPT/HCPCS: 36415; 80053

== ENCOUNTER → 2024-05-15 | Outpatient (CLI) | payer MEDICARE, SELFPAY ==
[2024-05-15 08:55] LABS: Mucous, Urine 0 SEEN /hpf (<or=2+); Red Blood Cells-Urine 0 SEEN /hpf (0-5)
[2024-05-15 12:03] LABS: Color, Urine Yellow (Yellow); Glucose, Dipstick Normal (Normal); Ketone-Dipstick Negative (Negative); Leukocyte Esterase-Dipstick 500 /ul (Negative); Nitrite-Dipstick Negative (Negative); Occult Blood-Urine Negative /ul (Negative); Protein-Dipstick 15 mg/dl (Negative); Urine Clarity Sl. Cloudy (Clear); Urine Urobilinogen Normal (Normal); Urine pH 6.5 (5.0 - 8.0)
[2024-05-15 12:04] LABS: Urine Bilirubin Dipstick 1 mg/dL (Negative)
[2024-05-15 12:11] LABS: White Blood Cells 25-50 SEEN /hpf (0-5)
[2024-05-15 12:12] LABS: Bacteria 3+ /hpf (None Seen); Squamous Epithelial Cells - UA 5-10 SEEN /hpf (5-10)
[2024-05-15 12:55] LABS: ALB/GLOB Ratio 1.1 RATIO (0.9-2.4); AST(SGOT) 17 U/L (15-37); Alanine Aminotransfer ALT/SGPT 20 U/L (13-56); Albumin, Serum 3.8 g/dL (3.2-5.0); Alkaline Phosphatase 105 U/L (45-117); Anion Gap 8 (5-15); BUN 25 mg/dL (7-18); BUN/Creat Ratio 32.7 RATIO (10-20); Calcium,Total 9.7 mg/dL (8.5-10.1); Chloride 98 mmol/L (98-107); Cholesterol 133 mg/dL (200); Creatinine, Serum 0.76 mg/dL (0.55-1.02); EST Glomerular Filtration Rate 77 mL/min (>60); Est Glom Filt Rate - Afr Amer 94 mL/min (>60); Free T3 0.9 pg/mL (2.18-3.98); Globulin 3.6 g/dL (2.2-4.2); Glucose 163 mg/dL (74-106); High Density Lipoprotein 43 mg/dL; Magnesium 1.6 mg/dL (1.6-2.6); Potassium 3.8 mmol/L (3.5-5.1); Protein, Total 7.4 g/dL (6.4-8.2); Sodium Level 134 mmol/L (136-145); T4 Free Direct 1.99 ng/dL (0.76-1.46); Triglycerides 185 mg/dL; Very Low Density Lipoprotein 37 mg/dL (5-40)
[2024-05-15 13:44] LABS: Vitamin B12 218 pg/mL (211-911)
[2024-05-15 13:49] LABS: Hemoglobin A1c 6.9 % (3.8-5.6)
== END | disposition home or self-care (01) ==
LOC: BIMLAB 08:53
PROVIDERS: PCP Internal Medicine; Visit Provider Internal Medicine
DX: N39.0 Urinary tract infection, site not specified (principal); E11.69 Type 2 diabetes mellitus with other specified complication; E55.9 Vitamin D deficiency, unspecified; I10 Essential (primary) hypertension; E78.00 Pure hypercholesterolemia, unspecified; E66.9 Obesity, unspecified; E03.9 Hypothyroidism, unspecified; M51.369 Other intervertebral disc degeneration, lumbar region without mention of lumbar back pain or lower extremity pain; E53.8 Deficiency of other specified B group vitamins; Z13.220 Encounter for screening for lipoid disorders; R30.0 Dysuria
CPT/HCPCS: 36415; 80053; 80061; 81001; 82306; 82607; 83036; 83735; 84439; 84443; 84481; 87077; 87086; 87088; 87186

== ENCOUNTER → 2024-11-23 | Outpatient (CLI) | payer MEDICARE, SELFPAY ==
[2024-11-23 12:33] LABS: Absolute Lymphocyte Count 2.39 X10^3/uL (0.83-4.51); Absolute Neutrophil Count 4.7 X10^3/uL (2.0-7.7); Basophil# 0.08 X10^3/uL; Eosinophil# 0.54 X10^3/uL; Eosinophils% 6.4 % (0-5); Hematocrit 34.9 % (37-47); Hemoglobin 11.6 g/dL (12.0-15.0); Lymphocyte # 2.39 X10^3/ul (0.83-4.51); Lymphocyte % 28.5 % (19-41); Mean Corp Hgb Conc 33.2 g/dL (32-36); Mean Corpuscular Hgb 30.5 pg (27.0-32.0); Mean Corpuscular Volume 91.8 fL (81-99); Mean Platelet Vol. 10.3 fl (6.2-12.0); Monocyte# 0.65 X10^3/uL; Monocyte% 7.8 % (0-10); NRBC Flagged by Analyzer 0 % (0-5); Neutrophil % 56.1 % (47-70); Platelet Count 258 K/mm3 (150-450); RBC Distribution Width CV 13.4 % (11.6-14.6); RBC Distribution Width SD 45.1 fl (35.1-43.9); White Blood Count 8.4 K/mm3 (4.4-11.0)
[2024-11-23 12:46] LABS: Hemoglobin A1c 7.2 % (<=5.6)
[2024-11-23 13:01] LABS: ALB/GLOB Ratio 1.6 RATIO (0.9-2.4); AST(SGOT) 21 U/L (<=31); Alanine Aminotransfer ALT/SGPT 16 U/L (<=34); Albumin, Serum 4.3 g/dL (3.4-4.8); Alkaline Phosphatase 99 U/L (35-104); Anion Gap 14 (5-15); BUN 26 mg/dL (4-19); BUN/Creat Ratio 37.9 RATIO (10-20); Calcium,Total 9.8 mg/dL (7.6-11.0); Carbon Dioxide 26.6 mmol/L (21.0-32.0); Chloride 96 mmol/L (98-108); Cholesterol 126 mg/dL (<=200); Creatinine, Serum 0.69 mg/dL (0.70-1.20); EST Glomerular Filtration Rate 88 (>60); Free T3 3.6 pg/mL (2.18-3.98); Globulin 2.6 g/dL (2.2-4.2); Glucose 149 mg/dL (70-99); High Density Lipoprotein 42 mg/dL; Low Density Lipoprotein Calc. 51 mg/dL; Potassium 4.2 mmol/L (3.3-5.1); Protein, Total 6.9 g/dL (5.9-8.4); Sodium Level 137 mmol/L (133-145); Thyroid Stim Hormone (TSH) 0.411 uIU/mL (0.300-4.200); Total Bilirubin 0.34 mg/dL (0.00-1.30); Triglycerides 170 mg/dL; Very Low Density Lipoprotein 34 mg/dL (5-40); Vitamin B12 179 pg/mL (180-914); Vitamin D,25 Hydroxy 32.5 ng/mL (30-100); cholesterol:hdl ratio screen 3.04
== END | disposition home or self-care (01) ==
LOC: BIMLAB 10:19
PROVIDERS: PCP Internal Medicine; Referring Provider Internal Medicine; Visit Provider Internal Medicine
DX: E03.9 Hypothyroidism, unspecified (principal); E11.69 Type 2 diabetes mellitus with other specified complication; I10 Essential (primary) hypertension; E66.9 Obesity, unspecified; Z13.220 Encounter for screening for lipoid disorders; E53.8 Deficiency of other specified B group vitamins; E55.9 Vitamin D deficiency, unspecified
CPT/HCPCS: 36415; 80053; 80061; 82306; 82607; 83036; 84439; 84443; 84481; 85025

== ENCOUNTER → 2025-01-02 | Outpatient (CLI) | payer MEDICARE, SELFPAY ==
[2025-01-02 12:44] LABS: Hematocrit 36.8 % (37-47); Hemoglobin 12.2 g/dL (12.0-15.0); Immature Granulocytes Count 0.020 X10^3/uL (0.0-0.0); Immature Reticulocyte Fraction 6.70 % (3.00-15.90); Mean Corp Hgb Conc 33.2 g/dL (32-36); Mean Corpuscular Volume 91.8 fL (81-99); Mean Platelet Vol. 10.5 fl (6.2-12.0); NRBC Flagged by Analyzer 0 % (0-5); Platelet Count 281 K/mm3 (150-450); RBC Distribution Width CV 13.0 % (11.6-14.6); RBC Distribution Width SD 43.4 fl (35.1-43.9); Red Blood Count 4.01 M/mm3 (4.2-5.4); Reticulocyte Count 1.37 % (0.5-1.5); White Blood Count 10.1 K/mm3 (4.4-11.0)
== END | disposition home or self-care (01) ==
LOC: BIMLAB 08:42
PROVIDERS: PCP Internal Medicine; Referring Provider Internal Medicine; Visit Provider Internal Medicine
DX: D64.9 Anemia, unspecified (principal)
CPT/HCPCS: 36415; 85025; 85045

== ENCOUNTER → 2025-05-16 | Outpatient (CLI) | payer MEDICARE, SELFPAY ==
[2025-05-16 10:20] LABS: Hematocrit 35.4 % (37-47); Hemoglobin 12.1 g/dL (12.0-15.0); Immature Granulocytes Count 0.030 X10^3/uL (0.0-0.0); Mean Corp Hgb Conc 34.2 g/dL (32-36); Mean Corpuscular Volume 89.2 fL (81-99); Mean Platelet Vol. 9.9 fl (6.2-12.0); NRBC Flagged by Analyzer 0 % (0-5); Platelet Count 311 K/mm3 (150-450); RBC Distribution Width CV 13.2 % (11.6-14.6); RBC Distribution Width SD 43.1 fl (35.1-43.9); Red Blood Count 3.97 M/mm3 (4.2-5.4); White Blood Count 10.6 K/mm3 (4.4-11.0)
[2025-05-16 11:09] LABS: AST(SGOT) 19 U/L (<=31); Alanine Aminotransfer ALT/SGPT 16 U/L (<=34); Albumin, Serum 4.3 g/dL (3.4-4.8); Alkaline Phosphatase 105 U/L (35-104); Anion Gap 14 (5-15); BUN 22 mg/dL (4-19); BUN/Creat Ratio 28.5 RATIO (10-20); Calcium,Total 10.4 mg/dL (7.6-11.0); Carbon Dioxide 28.0 mmol/L (21.0-32.0); Chloride 95 mmol/L (98-108); Cholesterol 132 mg/dL (<=200); Free T3 4.0 pg/mL (2.18-3.98); Globulin 2.9 g/dL (2.2-4.2); Glucose 145 mg/dL (70-99); Low Density Lipoprotein Calc. 59 mg/dL; Magnesium 1.5 mg/dL (1.5-2.2); Potassium 4.1 mmol/L (3.3-5.1); Triglycerides 175 mg/dL; Very Low Density Lipoprotein 35 mg/dL (5-40); Vitamin B12 230 pg/mL (180-914); Vitamin D,25 Hydroxy 42.5 ng/mL (30-100); cholesterol:hdl ratio screen 3.03
== END | disposition home or self-care (01) ==
LOC: MTLAB 08:41
PROVIDERS: PCP Internal Medicine; Referring Provider Internal Medicine; Visit Provider Internal Medicine
DX: E03.9 Hypothyroidism, unspecified (principal); E11.69 Type 2 diabetes mellitus with other specified complication; D64.9 Anemia, unspecified; I10 Essential (primary) hypertension; E66.9 Obesity, unspecified; E78.00 Pure hypercholesterolemia, unspecified; Z13.220 Encounter for screening for lipoid disorders; E55.9 Vitamin D deficiency, unspecified; E53.8 Deficiency of other specified B group vitamins
CPT/HCPCS: 36415; 80053; 80061; 82306; 82607; 83036; 83735; 84439; 84443; 84481; 85025